=== PATIENT | female | born 1940 | race Hispanic/Latino ===

== ENCOUNTER 2017-06-10 12:08 | Inpatient (IN) | payer MEDICARE ==
[2017-06-10 12:55] LABS: Bilirubin Negative (Negative); Blood, Urine Negative (Negative); Glucose, Urine (Dipstick) Negative (Negative); Ketone, Urine Negative (Negative); Nitrite Negative (Negative); Protein, Urine (Dipstick) Negative (Neg-Trace)
[2017-06-10 12:57] LABS: Bacteria/HPF 4+ HPF (None Seen); Squamous Epithelial 0-3 HPF (0-3); WBC/HPF 21-50 HPF (0-3)
[2017-06-10 13:07] LABS: RBC/HPF 0-3 HPF (0-3)
[2017-06-10 13:09] LABS: Hyaline Casts/LPF 0-3 HYALINE CAST LPF (0-3 Hyaline)
[2017-06-10 13:22] LABS: #Eosinphils 0.2 thou/uL (0.0-0.7); #Lymphocytes 1.2 thou/uL (1.20-3.40); #Monocytes 0.4 thou/uL (0.11-0.59); #Neutrophils 3.8 thou/uL (1.40-6.50); %Basophils 0.5 % (0.0-1.0); %Eosinophils 2.9 % (0.0-10.0); %Lymphocytes 21.3 % (21.0-51.0); %Monocytes 7.6 % (0.0-10.0); Hematocrit 27.9 % (36.0-47.0); Red Blood Cell (RBC) Count 2.73 mill/uL (4.20-5.40); White Blood Cell (WBC) Count 5.7 thou/uL (4.8-10.8)
--- NOTE | 2017-06-10 13:33 | RAD ---
PORTABLE CHEST: HISTORY: Dyspnea. COMPARISON: 04/05/2017 FINDINGS: Increasing opacification in the lung bases is noted, indicating moderate bilateral effusions and bib asilar atelectasis or infiltrates. There is evidence of cardiomegaly and aortic calcification again noted. Chronic dislocation of the right shoulder again noted. Degenerative changes at the left shoulder. IMPRESSION: Increasing opacification in the lung bases when compared to prior study, as described. POS: [facility]
--- NOTE | 2017-06-10 13:38 | CT ---
CT ANGIO CHEST WITH CONTRAST: HISTORY: Shortness of breath. Elevated D-dimer. TECHNIQUE: Multiple axial tomograms obtained through the chest with pulmonary angio protocol, with multiplanar reconstruction and 3D post processing. FINDINGS: This exam is severely degraded due to attenuation artifact from body habitus. The pulmonary arterie s have suboptimal opacification. No evidence of proximal pulmonary embolus identified. There are moderate bilateral pleural effusions and bibasilar atelectasis or infiltrates with dense a telectasis/consolidation in the left lung base. The thoracic aorta shows no evidence of dissection. Nonspecific mediastinal lymph nodes with a calcified left hilar lymph node. Images through the up per abdomen are unremarkable. IMPRESSION: 1. Suboptimal exam, as described above. No evidence of proximal pulmonary embolus. 2. Bilateral pleural effusions with bibasilar atelectasis and dense atelectasis/consolidation in th e left lung base. POS: [facility]
[2017-06-10 13:42] LABS: ALT (SGPT) 8 U/L (8-55); AST (SGOT) 13 U/L (5-34); Alkaline Phosphatase 90 U/L (40-150); Anion Gap 14 mmol/L (10-20); BUN (Urea Nitrogen) 19 mg/dL (9.8-20.1); Bilirubin, Total 0.2 mg/dL (0.2-1.2); CK (CPK) 20 U/L (29-168); Calc. Creatinine Clearance 0 mL/min (70-130); Carbon Dioxide 27 mmol/L (23-31); Chloride 106 mmol/L (98-107); Estimated GFR-MDRD 84; Protein, Total 5.9 g/dL (6.0-8.3)
[2017-06-10 13:46] LABS: Troponin I Less than 0.010 ng/mL (< 0.028)
[2017-06-10] MEDS ORDERED: Piperacillin/Tazobactam 4.5 GM VIAL ONE (14:34)
[2017-06-10] MEDS ORDERED: Piperacillin/Tazobactam 4.5 GM, Admixture Fee 1 EACH in Sodium Chloride 0.9% 100 ML IVPB SCH (14:45)
[2017-06-10] MEDS ORDERED: ISOVUE-370 76%-LOCM 1 ML ONE (16:00)
[2017-06-10] MEDS ORDERED: Ondansetron HCl/PF 4 MG/2 ML Vial IVP PRN (17:19)
[2017-06-10] MEDS ORDERED: Acetaminophen 325 MG TAB PO PRN (17:19)
[2017-06-10] MEDS ORDERED: Ondansetron ODT 4 MG TAB SL PRN (17:19)
[2017-06-10] MEDS ORDERED: FLU VACC TS2017-18 (>65YR) 0.5 ML SYRINGE IM ONE (18:15)
[2017-06-10] MEDS ORDERED: Insulin Regular 300 UNITS/3 ML VIAL SC PRN (19:01)
[2017-06-10] MEDS ORDERED: Dextrose 5% in Water 1,000 ML IV PRN (19:01)
[2017-06-10] MEDS: busPIRone HCl 10 MG TAB PO SCH (20:05)
[2017-06-10] MEDS: Piperacillin/Tazobactam 4.5 GM, Admixture Fee 1 EACH in Sodium Chloride 0.9% 100 ML IVPB SCH (21:18)
--- NOTE | 2017-06-10 23:44 | HP ---
DATE OF ADMISSION: 06/10/2017 CHIEF COMPLAINT: Pneumonia, left lower lobe. HISTORY OF PRESENT ILLNESS: Patient is a 76[facility] patient who had been in her usual state of health and inactivity at the [facility] when they noticed her being more short witted th an usual. They elected to send her to the emergency room where there was initially concern about pu lmonary embolism and because of elevated D-dimer. When the CT scan of the chest was performed, it s howed no pulmonary embolism, but a possible infiltrate/atelectasis to the left lower lobe and the ER doctor contacted Dr. Torres about his concern that this is a pneumonia, despite a normal white count , no fever, no cough. He thought she warranted antibiotics and further treatment. PAST MEDICAL HISTORY: Significant for extreme morbid obesity and sedentary lifestyle, hypertension, obstructive sleep apnea - noncompliant with CPAP, osteoarthritis of the knees, severe hypothyroidis m, chronic back pain, depression, anxiety, B12 deficiency, and GERD. PAST SURGICAL HISTORY: Cholecystectomy. ALLERGIES: She has no known drug allergies. MEDICATIONS: Her regular medications include levothyroxine 25 mcg daily, Actos 30 mg daily, glimepi ride 2 mg daily, Paxil 20 mg daily, Protonix 40 mg daily, hydrochlorothiazide 25 mg daily, and BuSpa r 10 mg t.i.d. FAMILY HISTORY: The patient's family history is very strong for diabetes, chronic kidney disease wi th one sister on dialysis. No family history of cancer. SOCIAL HISTORY: The patient does not smoke or drink. REVIEW OF SYSTEMS: Constitutional: She has chronic fatigue. States that she has no appetite, but remained extremely obese. IT APPLICATIONS DEVELOPER: No history of syncope, TIA, seizures, headaches. She is dizzy occa sionally. Respiratory burkett: Denies coughing dyspneaalthough, she was observed to be dyspnea by the nurses. Heart: She denies chest pain, arrhythmias, or palpitations. HEENT: Denies headaches, bl urred vision, lesions in her nose, mouth, pharynx. Abdomen: Denies abdominal pain, diarrhea, or na usea. Genitourinary: Denies painful urination or blood in urine or stool. Musculoskeletal: Denie s any pains except for chronic arthritis in her major joints. Skin: No acute rashes or lesions not ed. She has had a chronic wound care coming for her left great toe, which is showing peripheral vas cular insufficiency. Hematology/Lymph: No new areas of swelling or edema. Psychiatrically: Signi ficant for anxiety and depression, which are well controlled at this time. Denies hallucinations or delusions. PHYSICAL EXAMINATION: At the time of admission: VITAL SIGNS: Blood pressure is 133/72, pulse is 77, respirations 17, O2 saturation 97% on room air oxygen 2 liters per nasal cannula. She weighs 271 pounds 9 ounces. GENERAL: This is an extremely obese female, alert, oriented, and cooperative without any distress. HEENT: Normocephalic and atraumatic. Pupils are equal, round, and reactive to light. Extraocular muscles are intact. TMs, nares, pharynx clear. NECK: Supple, trachea midline, no mass, no bruits. CHEST: With good breath sounds bilaterally. No audible rales, wheezing, or rhonchi. HEART: Regular rate and rhythm. BREASTS EXAM: Deferred. ABDOMEN: Nontender, obese, unable to appreciate organomegaly. GENITOURINARY: Deferred. EXTREMITIES: Without clubbing, cyanosis, or edema; however, at the left great toe, there is an isch emic tip with slowly healing sore. NEUROLOGIC: Neurologically, cranial nerves are intact. Sensory exam is intact. Mental status is a t baseline and nonfocal. Unable to test gait and cerebellar function. LABORATORY DATA AND X-RAY FINDINGS: Lab work thus far shows WBC is 5.7, hemoglobin 8.5, hematocrit 27.9 with platelets at 276. Sodium 143, potassium 4.2, chloride 106, CO2 of 27, BUN 19, creatinine 0.68 with a GFR of 84, and glucose 109. CK-MB, cardiac enzymes are all negative. BNP slightly elev ated at 188. Liver functions unremarkable. Protein intake is somewhat low. Urinalysis shows large leukocyte esterase with wbc's 2150 and 4+ bacteria. ASSESSMENT: 1. Atelectasis versus left lower lobe pneumonia. 2. Urinary tract infection. 3. Peripheral vascular disease with poor healing, left great toe. 4. Extreme obesity. 5. Noninsulin-dependent diabetes. 6. Obstructive sleep apnea, noncompliant. 7. Chronic anemia due to B12 deficiency. The plan is to Hemoccult stools. IV antibiotics. We will continue DuoNeb treatments q.i.d. Serial ly, reevaluate the patient for her blood sugars and hopefully, we will be able to [facility] to the [facility] soon. We will also have wound care come and follow the left great toe.
[2017-06-11] MEDS: Piperacillin/Tazobactam 4.5 GM, Admixture Fee 1 EACH in Sodium Chloride 0.9% 100 ML IVPB SCH ×4 (02:50→21:15)
[2017-06-11] MEDS: Vancomycin HCl 1.75 GM in Sodium Chloride 0.9% 500 ML IVPB SCH ×2 (02:51→12:56)
[2017-06-11 04:16] LABS: #Basophils 0.1 thou/uL (0.0-0.2); #Eosinphils 0.2 thou/uL (0.0-0.7); #Lymphocytes 1.3 thou/uL (1.20-3.40); #Monocytes 0.6 thou/uL (0.11-0.59); #Neutrophils 4.1 thou/uL (1.40-6.50); %Basophils 0.9 % (0.0-1.0); %Eosinophils 3.1 % (0.0-10.0); %Lymphocytes 20.9 % (21.0-51.0); %Monocytes 9.6 % (0.0-10.0); Hematocrit 26.1 % (36.0-47.0); Mean Platelet Volume 6.3 fL (7.4-10.4); Red Blood Cell (RBC) Count 2.56 mill/uL (4.20-5.40); White Blood Cell (WBC) Count 6.2 thou/uL (4.8-10.8)
[2017-06-11 04:20] LABS: Hemoglobin A1c 4.6 % (4.0-6.0)
[2017-06-11 04:29] LABS: Anion Gap 11 mmol/L (10-20); BUN (Urea Nitrogen) 19 mg/dL (9.8-20.1); Calc. Creatinine Clearance 141 mL/min (70-130); Calcium 8.7 mg/dL (7.8-10.44); Carbon Dioxide 28 mmol/L (23-31); Chloride 107 mmol/L (98-107); Cholesterol 143 mg/dl (< 200 Desired); Estimated GFR-MDRD 86; LDL Cholesterol, Calculated 71 mg/dL
[2017-06-11] MEDS: Levothyroxine Sodium 25 MCG TAB PO SCH (05:38)
--- NOTE | 2017-06-11 07:59 | PRG ---
DATE OF SERVICE: 06/11/2017 SUBJECTIVE: The patient is awake. She is alert. She feels better she says. She is eating breakfa [address]. PHYSICAL EXAMINATION: GENERAL: She is awake. VITAL SIGNS: Her blood pressure 120/70, pulse 66, respirations 18, temperature 98.3. NECK: Supple. JVP cannot be assessed due to obese neck. Carotid had good upstroke with no thyrome casandra. COR: Regular rate and rhythm. CHEST: A few scattered wheezing, a few crackles. ABDOMEN: Soft, nontender with normoactive bowel sounds. No bruit or organomegaly. EXTREMITIES: No edema or cyanosis. She had palpable pedal pulses. SKIN: At the left great toe there is an ischemic tip with slowly healing sore. She had palpable pe beth pulses. NEUROLOGIC: She is awake, alert, and oriented to person, place, and time. LABORATORY DATA: White blood cell normal, H\T\H 8.0 and 26.1, platelet count is 290. ASSESSMENT: 1. Pneumonia. 2. Urinary tract infection. 3. Obesity. 4. Diabetes. 5. Anemia. 6. Sleep apnea. 7. Multiple medical problems. PLAN: The patient will continue here on IV antibiotics. We will wait for Hemoccult stool. We will also check iron studies. The patient verbalized understanding and all questions answered to her sa buster.
[2017-06-11] MEDS: Losartan 25 MG TAB PO SCH (09:44)
[2017-06-11] MEDS: Hydrochlorothiazide 25 MG TAB PO SCH (09:44)
[2017-06-11] MEDS: Pioglitazone HCl 15 MG TAB PO SCH (09:45)
[2017-06-11] MEDS: PARoxetine 20 MG TAB PO SCH (09:45)
[2017-06-11] MEDS: Glimepiride 2 MG TAB PO SCH (09:45)
[2017-06-11] MEDS: busPIRone HCl 10 MG TAB PO SCH ×3 (09:45→21:15)
[2017-06-11] MEDS: Acetaminophen 325 MG TAB PO PRN (10:48)
--- NOTE | 2017-06-11 12:27 | PQF ---
DATE: 06-11-17 ATTN: JEAN CLAUDE TUCKER / DR. LESLIE COX Please exercise your independent, professional judgment in responding to the clarification form. Clinical indicators are provided on the bottom of this form for your review Please check appropriate box(s): [ ] Sepsis due to UTI due to Indwelling Kumar Catheter [ ] Sepsis due to UTI not due to Indwelling Kumar Catheter [ ] Other diagnosis [ x ] Unable to determine In addition, please specify: Present on Admission (POA): [ x ] Yes [ ] No [ ] Unable to determine For continuity of documentation, please document condition throughout progress notes and discharge summary. Thank You. CLINICAL INDICATORS - SIGNS / SYMPTOMS / LABS URINE: 06-10-17: UR LEUKOCYTE ESTERASE LARGE H URINE WBC 21-50 H URINE BACTERIA +4 H ER DOCUMENTATION: KUMAR CATHETER WAS PLACED ON 04-27. MT NURSE CONFIRMED THAT KUMAR CATHETER HAS NOT BEEN CHANGED SINCE THIS DATE. Documentation: H&P: UTI PN JEAN CLAUDE TUCKER 06-14-17: SEPSIS FROM UTI RISK FACTORS: ER DOCUMENTATION: KUMAR CATHETER WAS PLACED ON 04-27. SKILLED NURSING NURSE CONFIRMED THAT KUMAR CATHETER HAS NOT BEEN CHANGED SINCE THIS DATE. TREATMENT: ER DOCUMENTATION: NEW KUMAR PLACED IN THE ED. (06-10-17: ZOSYN), VANCOMYCIN ( ER ) This form is maintained as a part of the permanent medical record) 2014 [employer], [employer] All Rights Reserved [email or web address] [email or web address] Office: [phone] HOSPITALAmber
[2017-06-12] MEDS: Piperacillin/Tazobactam 4.5 GM, Admixture Fee 1 EACH in Sodium Chloride 0.9% 100 ML IVPB SCH ×4 (03:01→19:58)
[2017-06-12] MEDS: Vancomycin HCl 1.75 GM in Sodium Chloride 0.9% 500 ML IVPB SCH ×2 (03:01→16:06)
[2017-06-12] MEDS: Levothyroxine Sodium 25 MCG TAB PO SCH (05:17)
--- NOTE | 2017-06-12 08:04 | PRG ---
DATE OF SERVICE: 06/12/2017 SUBJECTIVE: The patient had a good night. She denies any complaints except her right upper arm is swollen. I do not remember it being swollen at [facility]. PHYSICAL EXAMINATION: VITAL SIGNS: Upon evaluation, her blood pressure is normal at 112/50, pulse 70, respiration rate 18 . She is afebrile. NECK: Supple. JVP cannot be assessed due to obese neck. Carotid had good upstroke with no thyrome casandra. COR: Regular rate and rhythm. CHEST: Symmetrical. Clear to auscultation and percussion. ABDOMEN: Soft, nontender with normoactive bowel sounds. No bruit or organomegaly. EXTREMITIES: Her right upper extremity is cool, it is edematous, more so than the left. She had pa lpable pedal pulses. SKIN: There is no evidence of ulcer, lesion, or rash. NEUROLOGIC: She is awake, alert, and oriented to person, place, and time. LABORATORY DATA: There is no lab in the chart. ASSESSMENT: 1. Pneumonia. 2. Rule out deep venous thrombosis of the right upper extremity. 3. Hypertension. 4. Anemia. 5. Deconditioning. 6. Positive preliminary blood culture. PLAN: 1. We will check iron studies. 2. We will check a right upper extremity venous Doppler. 3. We will ask a Physical Therapy to see the patient in consultation. 4. We will check a CBC and CMP in the morning. This is SHAYNE Sherwood-Raul dictating for Dr. Reji Torres.
[2017-06-12] MEDS: Glimepiride 2 MG TAB PO SCH (08:39)
[2017-06-12] MEDS: busPIRone HCl 10 MG TAB PO SCH ×3 (08:40→19:58)
[2017-06-12] MEDS: Losartan 25 MG TAB PO SCH (08:40)
[2017-06-12] MEDS: Hydrochlorothiazide 25 MG TAB PO SCH (08:40)
[2017-06-12] MEDS: Pioglitazone HCl 15 MG TAB PO SCH (08:41)
[2017-06-12] MEDS: PARoxetine 20 MG TAB PO SCH (08:41)
[2017-06-12 09:45] LABS: Iron 31 ug/dL (50-170)
[2017-06-12] MEDS: Dextrose 50% Abboject 50 ML SYRINGE IVP PRN (10:32)
[2017-06-12 14:52] LABS: Vancomycin, Trough 24.7 ug/mL
--- NOTE | 2017-06-12 16:17 | ULT ---
RIGHT UPPER EXTREMITY VENOUS DUPLEX ULTRASOUND INCLUDING COLOR AND SPECTRAL DOPPLER IMAGIN06/12/17 HISTORY: 76-year-old female with right upper extremity swelling and edema. The visualized right internal jugular, subclavian, axillary, brachial, and radial and ulnar veins as well as the right basilic and cephalic veins demonstrate phasic flow with normal compressibility an d normal augmentation. No intraluminal thrombus. IMPRESSION: No evidence for deep venous thrombosis. POS: [facility]
[2017-06-12] MEDS: Dextrose 5% in Water 1,000 ML IV SCH (19:58)
[2017-06-13] MEDS: Dextrose 50% Abboject 50 ML SYRINGE IVP PRN ×5 (00:05→20:08)
[2017-06-13] MEDS ORDERED: Vancomycin HCl 1.25 GM in Sodium Chloride 0.9% 250 ML 250 ML IVPB SCH (04:00)
[2017-06-13 04:20] LABS: #Eosinphils 0.2 thou/uL (0.0-0.7); #Lymphocytes 0.5 thou/uL (1.20-3.40); #Monocytes 0.4 thou/uL (0.11-0.59); #Neutrophils 6.5 thou/uL (1.40-6.50); %Eosinophils 2.2 % (0.0-10.0); %Lymphocytes 6.1 % (21.0-51.0); %Monocytes 5.3 % (0.0-10.0); Hematocrit 27.6 % (36.0-47.0); Mean Platelet Volume 6.7 fL (7.4-10.4); Red Blood Cell (RBC) Count 2.65 mill/uL (4.20-5.40); White Blood Cell (WBC) Count 7.6 thou/uL (4.8-10.8)
[2017-06-13 04:50] LABS: ALT (SGPT) 9 U/L (8-55); AST (SGOT) 20 U/L (5-34); Alkaline Phosphatase 78 U/L (40-150); Anion Gap 14 mmol/L (10-20); BUN (Urea Nitrogen) 25 mg/dL (9.8-20.1); Bilirubin, Total 0.2 mg/dL (0.2-1.2); Calc. Creatinine Clearance 133 mL/min (70-130); Calcium 8.7 mg/dL (7.8-10.44); Carbon Dioxide 23 mmol/L (23-31); Chloride 106 mmol/L (98-107); Estimated GFR-MDRD 80; Globulin 3.2 g/dL (2.4-3.5)
[2017-06-13] MEDS: Levothyroxine Sodium 25 MCG TAB PO SCH (04:54)
[2017-06-13] MEDS: Piperacillin/Tazobactam 4.5 GM, Admixture Fee 1 EACH in Sodium Chloride 0.9% 100 ML IVPB SCH ×2 (04:54→13:29)
--- NOTE | 2017-06-13 08:12 | RAD ---
CHEST ONE VIEW: HISTORY: Dyspnea. Followup. COMPARISON: 06/10/2017 FINDINGS: The cardiac silhouette remains magnified, enlarged, and partially obscured by patchy bibasilar infil trates. The pulmonary vasculature remains engorged. The mediastinum is midline with aortic calcifi cation. IMPRESSION: 1. Congestive heart failure. 2. Stable radiographic appearance of the chest. POS: [facility]
[2017-06-13] MEDS: busPIRone HCl 10 MG TAB PO SCH ×3 (08:26→20:09)
[2017-06-13] MEDS: Losartan 25 MG TAB PO SCH (08:26)
[2017-06-13] MEDS: PARoxetine 20 MG TAB PO SCH (08:27)
[2017-06-13] MEDS: Hydrochlorothiazide 25 MG TAB PO SCH (08:27)
[2017-06-13] MEDS ORDERED: Ciprofloxacin 500 MG TAB PO SCH (08:30)
[2017-06-13] MEDS: Nitrofurantoin Monohyd/M-Cryst 100 MG CAP PO SCH ×2 (10:31→21:28)
--- NOTE | 2017-06-13 11:36 | PRG ---
ANU Sherwood, dictating for Reji Torres M.D. DATE OF SERVICE: 06/13/2017 SUBJECTIVE: The patient had a good night except her blood sugar remained low all day, yesterday and all tonight. She does eat 3 meals and she did have snacks all day. Apparently, she was lethargic when her blood sugar got very low in the middle of the night. PHYSICAL EXAMINATION: GENERAL: Upon evaluation, she is awake, alert, and oriented. She has had breakfast. VITAL SIGNS: Her blood pressure is good 110/60, her pulse is 94, temperature 97.4. NECK: Supple. JVP cannot be assessed due to obese neck. Carotid had good upstroke with no thyrome casandra. COR: Regular rate and rhythm. CHEST: Symmetrical. Clear to auscultation and percussion. ABDOMEN: Soft, nontender with normoactive bowel sounds. There was no bruit or organomegaly. EXTREMITIES: Her right arm is still swollen; however, her Doppler was negative. She had palpable p edal pulses. SKIN: There is no evidence of lesion or rash. LABORATORY DATA: Her urine culture came back to show three organisms. ASSESSMENT: 1. Urinary tract infection. 2. Hypoglycemia. 3. Hypertension. 4. Anemia. 5. Obesity. 6. Multiple medical problems. PLAN: 1. We will change her IV fluids to D10 at 125 mL an hour. 2. We will keep checking blood sugars every 3 hours. 3. We will make sure Austin was changed out. I believe it was changed out yesterday. 4. We will follow up with lab in the morning. 5. We will begin Cipro and Macrobid, but continue vancomycin until we know the blood culture final results. The patient verbalized understanding and all questions answered to her satisfaction.
[2017-06-13] MEDS ORDERED: Furosemide 40 MG/4 ML VIAL SLOW IVP SCH (13:00)
[2017-06-13 13:36] LABS: Oxyhemoglobin 95.4 % (94.0-97.0); Sodium 137 mmol/L (135-148)
[2017-06-13 13:37] LABS: Mode 2LNC; Vent YES
[2017-06-13] MEDS: Dextrose 10% in Water 1,000 ML IV SCH ×3 (15:15→22:33)
[2017-06-13] MEDS: Dextrose 5% in Water 1,000 ML IV SCH (16:24)
[2017-06-13] MEDS: MEROPENEM 1 GM/50 ML 1 GM in Premix Bag 1 BAG IVPB SCH ×2 (17:58→21:29)
--- NOTE | 2017-06-13 18:13 | RAD ---
CHEST ONE VIEW 06/13/17 HISTORY: Central line placement. COMPARISON: Chest one view same day. FINDINGS: Central venous catheter is present with tip at the superior SVC. No pneumothorax. Heart size is enla rged. Bilateral large effusions as well as extensive pulmonary edema. IMPRESSION: No complication status post central line placement. POS: [facility]
[2017-06-13] MEDS: Furosemide 40 MG TAB PO SCH (20:08)
[2017-06-13] MEDS: Ciprofloxacin 500 MG TAB PO SCH (20:09)
[2017-06-13] MEDS: Potassium Chloride 10 MEQ TAB PO SCH (20:09)
[2017-06-13] MEDS: Acetaminophen 325 MG TAB PO PRN (22:15)
--- NOTE | 2017-06-13 22:39 | OP ---
DATE OF PROCEDURE: 06/13/2017 PREOPERATIVE DIAGNOSES: 1. Pneumonia/urinary tract infection. 2. Need for intravenous access. POSTOPERATIVE DIAGNOSES: 1. Pneumonia/urinary tract infection. 2. Need for intravenous access. PROCEDURE PERFORMED: Placement of left subclavian triple-lumen central venous catheter. INDICATIONS FOR PROCEDURE: A 76-year-old morbidly obese woman who is admitted with a diagnosis of p neumonia and UTI. Multiple attempts to secure a dependable peripheral IV access have been unsuccess ful. I was asked to place a central venous access to facilitate therapeutics. DESCRIPTION OF PROCEDURE: Informed consent obtained from the patient who was placed in supine posit ion. The left chest wall is sterilely prepped and draped in the usual fashion. The skin below the left clavicle was anesthetized with 1% lidocaine. The left subclavian vein was then cannulated with an 18-gauge introducer needle returning dark venous blood. The guidewire was passed through this n eedle and advanced into the left subclavian vein without resistance. The needle was withdrawn over the guidewire. A stab incision is made adjacent to the guidewire using an 11 scalpel. A dilator wa s passed over the guidewire dilating subcutaneous tissues. The dilator was removed and a triple-lum en central venous catheter was then advanced over the guidewire and placed in the left subclavian ve in without resistance and stopping at the 18 cm triston. The guidewire was removed. Dark venous blood was aspirated from all 3 ports which were individually flushed with saline. The catheter was secur ed to the anterior chest wall using 3-0 silk suture at 2 points. Biopatch and sterile dressings wer e applied. The patient tolerated this procedure without any apparent complications. The portable c hest x-ray was obtained confirming proper placement of the line. No pneumothorax present. She terrie ins hemodynamically stable following completion of the procedure.
[2017-06-14] MEDS: Dextrose 50% Abboject 50 ML SYRINGE IVP PRN ×6 (00:06→14:59)
[2017-06-14 04:39] LABS: #Eosinphils 0.3 thou/uL (0.0-0.7); #Monocytes 0.8 thou/uL (0.11-0.59); #Neutrophils 5.6 thou/uL (1.40-6.50); %Basophils 0.2 % (0.0-1.0); %Eosinophils 4.3 % (0.0-10.0); %Lymphocytes 12.9 % (21.0-51.0); %Monocytes 10.2 % (0.0-10.0); Hematocrit 26.9 % (36.0-47.0); Mean Platelet Volume 6.3 fL (7.4-10.4); Red Blood Cell (RBC) Count 2.61 mill/uL (4.20-5.40); White Blood Cell (WBC) Count 7.7 thou/uL (4.8-10.8)
[2017-06-14 04:54] LABS: ALT (SGPT) 11 U/L (8-55); AST (SGOT) 14 U/L (5-34); Alkaline Phosphatase 71 U/L (40-150); Anion Gap 11 mmol/L (10-20); BUN (Urea Nitrogen) 28 mg/dL (9.8-20.1); Bilirubin, Total 0.2 mg/dL (0.2-1.2); Calc. Creatinine Clearance 109 mL/min (70-130); Calcium 8.5 mg/dL (7.8-10.44); Carbon Dioxide 26 mmol/L (23-31); Chloride 101 mmol/L (98-107); Estimated GFR-MDRD 63; Globulin 2.7 g/dL (2.4-3.5); Protein, Total 5.7 g/dL (6.0-8.3)
[2017-06-14] MEDS ORDERED: Furosemide 40 MG/4 ML VIAL SLOW IVP SCH (05:30)
[2017-06-14] MEDS: Ciprofloxacin 500 MG TAB PO SCH (05:52)
[2017-06-14] MEDS: Levothyroxine Sodium 25 MCG TAB PO SCH (05:52)
[2017-06-14] MEDS: MEROPENEM 1 GM/50 ML 1 GM in Premix Bag 1 BAG IVPB SCH ×3 (05:52→21:14)
[2017-06-14] MEDS ORDERED: Hydrocortisone Sod Succ/PF 100 mg/2 ml Vial IVP STA (09:04)
[2017-06-14] MEDS: busPIRone HCl 10 MG TAB PO SCH ×3 (09:10→21:14)
[2017-06-14] MEDS: Furosemide 40 MG TAB PO SCH ×2 (09:11→21:14)
[2017-06-14] MEDS: Hydrochlorothiazide 25 MG TAB PO SCH (09:11)
[2017-06-14] MEDS: Losartan 25 MG TAB PO SCH (09:11)
[2017-06-14] MEDS: PARoxetine 20 MG TAB PO SCH (09:13)
[2017-06-14] MEDS: Potassium Chloride 10 MEQ TAB PO SCH ×2 (09:13→21:14)
[2017-06-14] MEDS: Dextrose 10% in Water 1,000 ML IV SCH ×2 (09:26→15:51)
--- NOTE | 2017-06-14 09:36 | CON ---
DATE OF CONSULTATION: 06/14/2017 REASON FOR CONSULTATION: IMCU stay. HISTORY OF PRESENT ILLNESS: This is a 76-year-old female who [facility] [place] who was admitt ed several days ago for what appeared to be pneumonia. She has had persistently low blood sugars si nce the time of admission. I do not believe the source of that is known. I have reviewed her medic ation record and she has not received any oral hypoglycemics since the day of admission. She is cur rently needing a D10 drip to keep her glucose at a reasonable level. On top of that, she has requir ed several ampules of intravenous glucose to keep her blood sugar up. PAST MEDICAL HISTORY: 1. Diabetes mellitus type 2 for the last 40 years. 2. Morbid obesity. 3. Nonambulatory state. 4. Hypertension. 5. Osteoarthritis. 6. Ulcer on left great toe. 7. Chronic pain. 8. Hypothyroidism. 9. B12 deficiencies. 10. Gastroesophageal reflux. PAST SURGICAL HISTORY: Cholecystectomy. ALLERGIES: None. MEDICATIONS PRIOR TO ADMISSION: Levothyroxine, Actos, glimepiride, Paxil, Protonix, hydrochlorothia zide, buspirone. CURRENT INPATIENT MEDICATIONS: She is on a D10 drip, ciprofloxacin, Lasix, hydrochlorothiazide, Syn throid, Cozaar, meropenem, Macrobid, Protonix, Paxil. SOCIAL HISTORY: She does not drink alcohol. She does not smoke. She [facility] [place] a jail. REVIEW OF SYSTEMS: She denies any type of pain at the current time. She has no abdominal issues. She has had no fever, chills, nausea, vomiting, chest pain, hematemesis, melena, hematochezia, hemat uria, or dysuria. PHYSICAL EXAMINATION: VITAL SIGNS: Temperature 97.3, pulse 73, respirations 20, O2 sat 96% on 3 liters, blood pressure 11 6/35. GENERAL: She is awake and alert and is in no distress. She answers questions completely without li mitation. HEENT: Unremarkable. NECK: Without adenopathy or JVD. LUNGS: Clear to auscultation. No wheezing, rhonchi or rales. CARDIOVASCULAR: S1, S2 regular, without murmur. ABDOMEN: Soft, obese, nontender, nondistended. EXTREMITIES: No clubbing. She has 1+ edema. LABORATORY DATA AND IMAGING: Sodium 134, potassium 4, chloride 101, CO2 26, BUN 28, creatinine 0.8, glucose 59, albumin 3.0. White blood cell count 7.7, hemoglobin 8.2, hematocrit 26.9, platelet cou nt 329. Echocardiogram demonstrated an EF of 50%-55% with moderate mitral regurgitation. X-RAY FINDINGS: Chest x-ray from 06/10/2017 demonstrated bilateral pulmonary edema/infiltrate. ASSESSMENT: 1. Severe hypoglycemia - Etiology not known at this time. It does not appear that she is taking an y oral hypoglycemics, although previous oral hypoglycemics could be hanging in room. 2. Bilateral pulmonary infiltrates - currently on antibiotics. RECOMMENDATIONS: 1. Continue D10 drip. 2. Check C-peptide and insulin level. 3. One dose Solu-Cortef after checking cortisol level. 4. Continue antibiotics. 5. Judicious use of diuretics.
[2017-06-14] MEDS: Nitrofurantoin Monohyd/M-Cryst 100 MG CAP PO SCH ×2 (09:58→21:14)
--- NOTE | 2017-06-14 11:13 | ULT ---
LEFT LOWER EXTREMITY VENOUS DUPLEX SONOGRAM: Date: 06/14/17 HISTORY: Left leg pain and edema. FINDINGS: The left common femoral vein and greater saphenous junction were evaluated along with the femoral, d eep femoral, popliteal, and posterior tibial veins. There is good color and spectral Doppler flow, c ompression, and augmentation. IMPRESSION: No sonographic evidence of deep venous thrombosis within the left lower extremity. POS: [facility]
--- NOTE | 2017-06-14 13:04 | PRG ---
DATE OF SERVICE: 06/14/2017 SUBJECTIVE: The patient is awake. She is alert. She had her BiPAP on last night. She states she is breathing much better. She is diuresing well. Unfortunately, her blood sugar remains low. Dr. Gutierrez did come see the patient in consultation, because she was in [facility]. Upon evaluation, denies any complaints. PHYSICAL EXAMINATION: GENERAL: She is awake, alert, and oriented to person, place and time. VITAL SIGNS: Her blood pressure is 116/40, pulse 76, respiration 18, she is afebrile. NECK: Supple. JVD cannot be assessed due to obese neck. Carotid had good upstroke with no thyrome casandra. COR: Regular rate and rhythm. CHEST: Symmetrical. Clear to auscultation and percussion, upper lobes. ABDOMEN: Soft, nontender with normoactive bowel sounds. No bruit or organomegaly. EXTREMITIES: U pper extremities are swollen. Her left lower extremities are swollen with a pitting edema. I do no t have the official venous Doppler report that has been read in the chart yet. ASSESSMENT: 1. Sepsis from urinary tract infection. 2. Hypoglycemia. 3. Obesity. 4. Hypertension. 5. Sleep apnea. 6. Multiple medical problems. PLAN: 1. We will continue all antibiotics for now. Dr. Dominguez has been consulted. However, I do not see a note in the chart for him yet. He will hopefully help us guide the antibiotic use. Also, we will keep checking the blood sugars and keep on D10 for now. 2. I appreciate all help from Dr. Gutierrez. The case was discussed with Dr. Reji Torres. This is SHAYNE Sherwood-Raul dictating for Dr. Reji Torres.
[2017-06-14] MEDS ORDERED: Furosemide 40 MG/4 ML VIAL SLOW IVP PRN (15:23)
--- NOTE | 2017-06-14 21:02 | CON ---
DATE OF CONSULTATION: 06/14/2017 REASON FOR CONSULTATION: Pneumonia, urinary tract findings. HISTORY OF PRESENT ILLNESS: A 76-year-old whom I had seen many years ago when she presented with lower extremity inflammatory changes. She has a history of obesity, likely hypoventilation syndrome with sleep apnea, severe osteoarthritis , and hypothyroidism. At the half-way, they did a chest x-ray apparently and noticed that she had some concerns for possible pneumonia. CT angio did not show any evidence of pulmonary embolism, but there were bilateral pleural effusions and concern with pneumonia in both bases. She has been started on broad spectrum coverage, some urinary tract findings are of concern and we were asked to evaluate the patient. Since admission, she has displayed quite significant hypoglycemia. Apparently, she was given oral hypoglycemic agents. No insulin workup has been submitted, but is pending at this time. Ms. Palacios is awake and alert, oriented, eating lunch. She denies headaches, no sore throat, odynophagia, dysphagia, still with moderate dyspnea at rest. No abdominal pain. The patient has an indwelling Austin catheter for the past few months, the reason for placement is because she cannot get up to urinate by herself. She is not ambulatory, bedridden from her obesity and osteoarthritis and deconditioning. PAST MEDICAL HISTORY: Obesity, likely obstructive sleep apnea and hypoventilation syndrome, osteoarthritis, hypothyroidism, depression, B12 deficiency, GERD, prior complications related venous insufficiency and peripheral vascular disease with ulcerations in the lower extremities which have required extensive wound management, episodes of cellulitis treated in the past and has indwelling Austin catheter for the past few months. The indication is not very clear other than to keep her dry in the half-way. PAST SURGICAL HISTORY: Cholecystectomy. ALLERGIES: None. CURRENT MEDICATIONS: Include Tylenol, DuoNeb, BuSpar, Cipro, dextrose, meropenem. FAMILY HISTORY: Diabetes, renal insufficiency. SOCIAL HISTORY: Never smoker. PHYSICAL EXAMINATION: VITAL SIGNS: Normal temperature since admission and O2 sat 100%. SKIN: Showed some erythema in the presacral region and she has some shallow ulceration in the lateral aspect of the lower extremities and evidence of stasis dermatitis. She has a Austin catheter in place. Lymphedema in the lower abdominal fold area. The patient has a left subclavian central line placed during this admission. No lymphadenopathy. HEENT: Ocular movements are conjugate, some facial flushing. No conjunctival abnormalities. Sclerae white. Pupils are 2 mm and reactive. Oral cavity with upper and lower [place] teeth with some decay . Moist mucosa with shallow irregular ulcerations at the tip of her tongue. NECK: Supple, no jugular venous distention. LUNGS: With symmetric air entry, diminished breath sounds at bases. HEART: Markedly diminished heart sounds. ABDOMEN: Prominent abdominal panniculus in the abdominal fold area with lymphedema. EXTREMITIES: Osteoarthritis, she is able to wiggle her toes but cannot lift the knees from the surface of the bed. NEUROLOGIC: She is awake, oriented, follows commands. Recollection is fairly decent. LABORATORY DATA: White cell count of 4.7, hemoglobin 8.2, platelets 329. The creatinine 0.87, sodium 134. Liver profile normal. Albumin 3.0. Liver profile normal already. Urinalysis with 21-50 wbc's. Urine culture with pseudomonas aeruginosa E. coli and enterococcus species. Blood culture with coagulase negative Staph, likely contaminant. Last echocardiogram from June with a normal EF, normal left atrium, impaired relaxation, moderate MR. Brain natriuretic peptide was elevated, but not that much just 136. ASSESSMENT: Morbid obesity, hypoventilation syndrome, sleep apnea, chronic indwelling Austin catheterization and admission with respiratory symptoms and some abnormalities on x-ray and CT scan concerning for pneumonia. The patient has an element of diastolic dysfunction as well which may be contributing to symptoms plus the restrictive disease associated with the morbid obesity and hypoventilation syndrome. The findings in the urine not necessarily related to the symptoms that led to admission. The findings in the CT scanner concerning for either pneumonia or atelectasis associated with the bilateral pleural effusions. The patient had some neutrophilia on admission and I believe that empiric antimicrobial treatment is justifiable. The duration of therapy should be a short and I would go ahead and discontinue ciprofloxacin since there is overlap with meropenem. Would be important to attempt removal of the Austin catheter eventually and replace it with diapers to decrease the risk of future complications related to chronic Austin catheterization. Procalcitonin might help in terms of the discrimination, but now it has been a few days since admission, so this going to have less discriminating power if ordered now. MTDD
[2017-06-15] MEDS: Dextrose 10% in Water 1,000 ML IV SCH ×2 (01:02→07:42)
[2017-06-15 05:36] LABS: #Eosinphils 0.1 thou/uL (0.0-0.7); #Monocytes 0.5 thou/uL (0.11-0.59); %Basophils 0.3 % (0.0-1.0); %Eosinophils 1.6 % (0.0-10.0); %Lymphocytes 14.9 % (21.0-51.0); %Monocytes 7.6 % (0.0-10.0); Hematocrit 24.2 % (36.0-47.0); Mean Platelet Volume 6.2 fL (7.4-10.4); Red Blood Cell (RBC) Count 2.37 mill/uL (4.20-5.40); White Blood Cell (WBC) Count 6.6 thou/uL (4.8-10.8)
[2017-06-15 05:43] LABS: ALT (SGPT) 10 U/L (8-55); AST (SGOT) 15 U/L (5-34); Alkaline Phosphatase 69 U/L (40-150); Anion Gap 12 mmol/L (10-20); BUN (Urea Nitrogen) 30 mg/dL (9.8-20.1); Bilirubin, Total 0.2 mg/dL (0.2-1.2); Calc. Creatinine Clearance 108 mL/min (70-130); Calcium 8.2 mg/dL (7.8-10.44); Carbon Dioxide 25 mmol/L (23-31); Chloride 98 mmol/L (98-107); Estimated GFR-MDRD 57; Globulin 2.6 g/dL (2.4-3.5); Protein, Total 5.4 g/dL (6.0-8.3)
[2017-06-15] MEDS: Levothyroxine Sodium 25 MCG TAB PO SCH (06:26)
[2017-06-15] MEDS: MEROPENEM 1 GM/50 ML 1 GM in Premix Bag 1 BAG IVPB SCH ×3 (06:27→21:35)
[2017-06-15] MEDS: Potassium Chloride 10 MEQ TAB PO SCH ×2 (07:47→21:09)
[2017-06-15] MEDS: Losartan 25 MG TAB PO SCH (07:47)
[2017-06-15] MEDS: Nitrofurantoin Monohyd/M-Cryst 100 MG CAP PO SCH ×2 (07:47→21:08)
[2017-06-15] MEDS: busPIRone HCl 10 MG TAB PO SCH ×3 (07:47→21:08)
[2017-06-15] MEDS: Hydrochlorothiazide 25 MG TAB PO SCH (07:47)
[2017-06-15] MEDS: PARoxetine 20 MG TAB PO SCH (07:48)
[2017-06-15] MEDS: Furosemide 40 MG TAB PO SCH ×2 (07:48→21:09)
[2017-06-15] MEDS: Dextrose 50% Abboject 50 ML SYRINGE IVP PRN (08:08)
--- NOTE | 2017-06-15 09:09 | PRG ---
DATE OF SERVICE: 06/15/2017 She is a 76-year-old obese female who was admitted to the hospital with shortness of breath. PHYSICAL EXAMINATION: VITAL SIGNS: Blood pressure 118/38, sats are 90% on 2 liters, respirations 24, temperature 97. I's \T\ O's have been 1121 in, 190 out. GENERAL: This morning she says she is less short of breath. CHEST: Chest reveals decreased breath sounds, no wheezing. CARDIAC: Normal S1, S2, no gallops. ABDOMEN: Massive. BUN and creatinine are normal. Sodium 130. White count 6000, H\T\H 7 and 24, platelet count 296, g lucose was low. IMPRESSION: 1. Persistent low blood sugar, probably secondary to oral hypoglycemic medication. 2. Morbid obesity. 3. Diastolic dysfunction. 4. Sleep apnea. 5. Hyponatremia. 6. Urinary tract infection. PLAN: She was started on meropenem by primary care physician. She is on multiple antibiotics. I would try and deescalate some of the antibiotics. Continue suppo rtive care. Continue nocturnal ventilation. Prognosis remains guarded. We will follow while in the hospital.
--- NOTE | 2017-06-15 09:25 | RAD ---
AP VIEW OF THE CHEST: INDICATION: History of CHF. COMPARISON: Prior exam dated 06/13/17. FINDINGS: Cardiomegaly, pulmonary vascular congestion, edema, and bilateral pleural effusions are largely stabl e. No pneumothorax is evident. IMPRESSION: Stable exam. POS: EDIN
--- NOTE | 2017-06-15 09:57 | PQF ---
DATE: 06-15-17 ATTN: DR. SALMA COX Please exercise your independent, professional judgment in responding to the clarification form. Clinical indicators are provided on the bottom of this form for your review Please check appropriate box(s): ____x___ I (concur) with the Wound Care findings as stated below. ____x___ I (concur) with the Nurses Assessment findings as stated below. [ ] Pressure Ulcer: (Stage I: Erythema; Stage II: Partial thickness; Stage III : Full thickness; Stage IV: Necrosis to muscle/bone) [ ] Location: POA: [ ] Yes [ ] No[ ] Unable to determine Stage (I to IV): (Left Right Bilateral N/A ) [ ] Location: POA: [ ] Yes [ ] No[ ] Unable to determine Stage (I to IV): (Left Right Bilateral N/A ) [ ] Location: POA: [ ] Yes [ ] No[ ] Unable to determine Stage (I to IV): (Left Right Bilateral N/A ) [ ] Gangrene present [ ] Yes [ ] ischemic gangrene [ ] gas gangrene [ ] No [ ] Deep tissue injury [ ] Other diagnosis [ ] Unable to determine In addition, please specify: Present on Admission (POA): [ x ] Yes [ ] No [ ] Unable to determine For continuity of documentation, please document condition throughout progress notes and discharge summary. Thank You. CLINICAL INDICATORS - SIGNS / SYMPTOMS / LABS WCT: PRESSURE ULCER STAGE 3 TO RIGHT POSTERIOR THIGH WCT: PRESSURE ULCER STAGE 3 TO RIGHT INNER THIGH WCT: PRESSURE ULCER STAGE 3 TO LEFT BUTTOCK NURSE ASSESSMENT: PRESSURE ULCER STAGE 3 TO LEFT BUTTOCK RISK FACTORS: WCT CONSULT: MORBID OBESITY, SEDENTARY LIFESTYLE, OBSTRUCTIVE SLEEP APNEA NON COMPLAINT WITH CPAP, HYPOTHYROIDISM, VITAMIN B12 DEFICIENCY, OSTEOARTHRITIS AND DECONDITIONING DR. BOLAND CONSULT 06-14-17: SHE IS NOT AMBULATORY , BEDRIDDEN FROM HER OBESITY AND OSTEOARTHRITIS AND DECONDITIONING. TREATMENTS: WCT: WASHED WITH NS AND GAUZE AND AG+ HYDROFIBER PLACE IN WOUND BED, COVERED WITH OVAL FOAM. (This form is maintained as a part of the permanent medical record) 2014 [employer] All Rights Reserved DANIEL [email or web address] Office: [phone] BURT
[2017-06-15] MEDS ORDERED: ADMIXTURE FEE IV SCH ×3 (10:45)
[2017-06-15] MEDS ORDERED: STERILE WATER IV SCH ×3 (10:45)
[2017-06-15] MEDS ORDERED: WATER IV SCH ×3 (10:45)
[2017-06-15] MEDS ORDERED: DEXTROSE IV SCH ×3 (10:45)
--- NOTE | 2017-06-15 11:23 | CT ---
CT ABDOMEN AND PELVIS WITH ORAL AND IV CONTRAST: Date: 06/15/17 HISTORY: Insulinoma FINDINGS: There are bilateral pleural effusions with adjacent bibasilar atelectatic changes/consolidation. No f ree air, free fluid, or lymphadenopathy seen in the abdomen or pelvis. The liver, spleen, pancreas, a drenal glands, and kidneys are normal. Since the imaging has not been performed in the arterial phase of contrast administration, a small, hyperenhancing pancreatic mass could be missed on the study. Th e patient is status post cholecystectomy. The small bowel loops are not abnormally dilated. A normal appearing appendix is present. There is fecal material in the colon and rectum. There are vascular ca lcifications without evidence of aneurysmal dilatation of the abdominal aorta. Degenerative changes a re present in the spine. There is edema in the subcutaneous fat. IMPRESSION: 1. Bilateral pleural effusions and adjacent infiltrates/atelectatic changes. 2. Constipation. 3. Spinal spondylosis. 4. No definite evidence of pancreatic mass. POS: EDIN
[2017-06-15] MEDS: Dexamethasone 1 MG TAB PO SCH (22:46)
[2017-06-16 04:49] LABS: #Eosinphils 0.3 thou/uL (0.0-0.7); #Lymphocytes 0.8 thou/uL (1.20-3.40); #Monocytes 0.6 thou/uL (0.11-0.59); #Neutrophils 4.9 thou/uL (1.40-6.50); %Basophils 0.4 % (0.0-1.0); %Eosinophils 3.8 % (0.0-10.0); %Lymphocytes 12.1 % (21.0-51.0); %Monocytes 9.4 % (0.0-10.0); Hematocrit 24.2 % (36.0-47.0); Mean Platelet Volume 5.7 fL (7.4-10.4); White Blood Cell (WBC) Count 6.5 thou/uL (4.8-10.8)
[2017-06-16 05:06] LABS: Anion Gap 9 mmol/L (10-20); BUN (Urea Nitrogen) 37 mg/dL (9.8-20.1); Calc. Creatinine Clearance 104 mL/min (70-130); Calcium 8.8 mg/dL (7.8-10.44); Carbon Dioxide 28 mmol/L (23-31); Chloride 93 mmol/L (98-107); Estimated GFR-MDRD 55
[2017-06-16] MEDS: MEROPENEM 1 GM/50 ML 1 GM in Premix Bag 1 BAG IVPB SCH ×3 (06:05→22:02)
[2017-06-16] MEDS: Levothyroxine Sodium 25 MCG TAB PO SCH (06:06)
--- NOTE | 2017-06-16 08:06 | PRG ---
DATE OF SERVICE: 06/16/2017 SUBJECTIVE: The patient had a good night. Unfortunately, her BiPAP was not placed on her. Her blo od sugars have been slightly better as high as 111 during the night. Her CT of the abdomen was nega tive for pancreatic mass. LABORATORY DATA: Her hemoglobin is 7.8 with a creatinine of 24.2. Her sodium is low at 125. Her c ortisol level is pending and her potassium is slightly elevated. PHYSICAL EXAMINATION: GENERAL: She is awake, alert, and oriented to person, place, and time. VITAL SIGNS: Her blood pressure is 128/64, pulse 70, respirations 18. She is afebrile. NECK: Supple. JVD cannot be assessed due to obese neck. Carotid had good upstroke with no thyrome casandra. COR: Regular rate and rhythm. CHEST: Symmetrical. Clear to auscultation and percussion. ABDOMEN: Soft, nontender, normoactive bowel sounds. No bruit or organomegaly. EXTREMITIES: Bilateral upper extremity edema and lower extremity edema. She had palpable pedal pul ses. SKIN: There is no evidence of ulcer, lesion, or rash. NEUROLOGIC: She is awake, alert, and oriented to person, place, and time. ASSESSMENT: 1. Hyponatremia. 2. Anemia. 3. Diabetes with hypoglycemia. 4. Urinary tract infection/sepsis. 5. Obesity. 6. Multiple medical problems. PLAN: 1. We will limit her fluids to 1 liter a day. 2. We will follow up with lab in the morning. 3. We will keep her on the floor for the next 24 hours or so to make sure her blood sugars remain s table. We will also hold 1 dose of potassium as well.
[2017-06-16] MEDS ORDERED: ADMIXTURE FEE IV SCH ×6 (08:33→14:43)
[2017-06-16] MEDS ORDERED: DEXTROSE IV SCH ×6 (08:33→14:43)
[2017-06-16] MEDS ORDERED: STERILE WATER IV SCH ×6 (08:33→14:43)
[2017-06-16] MEDS ORDERED: WATER IV SCH ×6 (08:33→14:43)
[2017-06-16] MEDS: Losartan 25 MG TAB PO SCH (08:37)
[2017-06-16] MEDS: Potassium Chloride 10 MEQ TAB PO SCH (08:38)
[2017-06-16] MEDS: PARoxetine 20 MG TAB PO SCH (08:38)
[2017-06-16] MEDS: busPIRone HCl 10 MG TAB PO SCH ×3 (08:38→20:27)
--- NOTE | 2017-06-16 09:01 | PRG ---
DATE OF SERVICE: 06/16/2017 This morning, she is better, less shortness of breath, she is awake, responsive. PHYSICAL EXAMINATION: VITAL SIGNS: Stable. Pulse 80, blood pressure 130/80, respirations 18, I's and O's are 3282 in, 1 75 out. CHEST: Chest revealed decreased breath sounds without any wheezing. CARDIAC: Normal S1-S2. ABDOMEN: Soft, no masses. LABORATORY: BUN 37, creatinine is 0.9. BNP is normal. White count 6000, H\T\H 7 and 24, platelet 52. IMPRESSION: 1. Morbid obesity. 2. Hyperglycemia, probably secondary to prolonged glyburide effect. 3. Urosepsis. 4. Morbid obesity. 5. Azotemia. PLAN: Suggest cutting back on aggressive diuretics that she has, she is getting prerenal. I do not know why she is on the Decadron. Maybe consider decreasing the Decadron and try to decrease the D20 to 30 mL an hour. Hopefully, we can discharge tomorrow if the blood sugar remains adequate. Aggressive PT, nocturnal BiPAP. We will follow while she is in the IMCU.
[2017-06-16 13:43] VITALS: BMI 53.2
[2017-06-16] MEDS ORDERED: Potassium Chloride 10 MEQ TAB PO SCH (21:00)
[2017-06-16] MEDS: Dexamethasone 1 MG TAB PO SCH (22:57)
[2017-06-17 04:41] LABS: #Eosinphils 0.2 thou/uL (0.0-0.7); #Lymphocytes 0.8 thou/uL (1.20-3.40); #Monocytes 0.6 thou/uL (0.11-0.59); #Neutrophils 4.9 thou/uL (1.40-6.50); %Basophils 0.3 % (0.0-1.0); %Eosinophils 3.4 % (0.0-10.0); %Lymphocytes 11.6 % (21.0-51.0); %Monocytes 9.1 % (0.0-10.0); Hematocrit 23.5 % (36.0-47.0); Red Blood Cell (RBC) Count 2.33 mill/uL (4.20-5.40); White Blood Cell (WBC) Count 6.4 thou/uL (4.8-10.8)
[2017-06-17 04:45] LABS: ALT (SGPT) 10 U/L (8-55); AST (SGOT) 15 U/L (5-34); Alkaline Phosphatase 82 U/L (40-150); Anion Gap 7 mmol/L (10-20); BUN (Urea Nitrogen) 40 mg/dL (9.8-20.1); Bilirubin, Total 0.3 mg/dL (0.2-1.2); Calc. Creatinine Clearance 120 mL/min (70-130); Calcium 8.7 mg/dL (7.8-10.44); Carbon Dioxide 31 mmol/L (23-31); Chloride 94 mmol/L (98-107); Estimated GFR-MDRD 63; Globulin 2.5 g/dL (2.4-3.5); Protein, Total 5.4 g/dL (6.0-8.3)
[2017-06-17] MEDS: MEROPENEM 1 GM/50 ML 1 GM in Premix Bag 1 BAG IVPB SCH ×3 (05:56→21:40)
[2017-06-17] MEDS: Levothyroxine Sodium 25 MCG TAB PO SCH (05:56)
[2017-06-17] MEDS ORDERED: Furosemide 40 MG TAB PO SCH (07:30)
[2017-06-17] MEDS: Losartan 25 MG TAB PO SCH (08:38)
[2017-06-17] MEDS: PARoxetine 20 MG TAB PO SCH (08:39)
[2017-06-17] MEDS: busPIRone HCl 10 MG TAB PO SCH ×3 (08:39→19:54)
[2017-06-17] MEDS ORDERED: Furosemide 20 MG TAB PO SCH (09:00)
--- NOTE | 2017-06-17 14:23 | PRG ---
DATE OF SERVICE: 06/17/2017 SUBJECTIVE: This morning she is awake, alert, responsive, is better. PHYSICAL EXAMINATION: VITAL SIGNS: Blood pressure 121/35, sats 98%, temperature 97, pulse 76, respiratory rate 16. I's a nd O's 3282 in and 1750 out. CHEST: Decreased breath sounds without any wheezing. CARDIAC: Normal S1, S2. ABDOMEN: Soft, no masses. ASSESSMENT: 1. Hypoglycemia, resolved. 2. Hyponatremia. 3. Anemia. Hemoglobin and hematocrit 7 and 23. 4. Morbid obesity. 5. Severe deconditioning. D20 was discontinued. Blood sugar now is 96. Consider switching Accu-Cheks to a.c. and at bedtime. PT, nutrition, and supportive care. We will follow her at a distance. Please call if needed.
[2017-06-18] MEDS: Levothyroxine Sodium 25 MCG TAB PO SCH (05:27)
[2017-06-18] MEDS: MEROPENEM 1 GM/50 ML 1 GM in Premix Bag 1 BAG IVPB SCH ×3 (05:27→21:34)
[2017-06-18 06:01] LABS: #Eosinphils 0.3 thou/uL (0.0-0.7); #Lymphocytes 1.6 thou/uL (1.20-3.40); #Monocytes 0.7 thou/uL (0.11-0.59); #Neutrophils 3.8 thou/uL (1.40-6.50); %Basophils 0.5 % (0.0-1.0); %Eosinophils 4.6 % (0.0-10.0); %Lymphocytes 24.5 % (21.0-51.0); %Monocytes 11.1 % (0.0-10.0); Hematocrit 22.5 % (36.0-47.0); Red Blood Cell (RBC) Count 2.24 mill/uL (4.20-5.40); White Blood Cell (WBC) Count 6.4 thou/uL (4.8-10.8)
[2017-06-18 06:27] LABS: Anion Gap 7 mmol/L (10-20); BUN (Urea Nitrogen) 44 mg/dL (9.8-20.1); Calc. Creatinine Clearance 124 mL/min (70-130); Calcium 8.7 mg/dL (7.8-10.44); Carbon Dioxide 29 mmol/L (23-31); Chloride 96 mmol/L (98-107); Estimated GFR-MDRD 65
--- NOTE | 2017-06-18 07:13 | PRG ---
DATE OF SERVICE: 06/17/2017 SUBJECTIVE: Ms. Palacios is sitting up by the bedside. She is feeling better: She is awake and alert, breathing better. No chest pain, no abdominal pain. She still has a Austin catheter in place. PHYSICAL EXAMINATION: VITAL SIGNS: Temperature max 98.4, blood pressure 120/60, pulse 75. GENERAL: More alert, more awake, breathing more comfortably. LUNGS: With symmetric air entry with faint basilar crackles. HEART: S1, S2, regular rate. ABDOMEN: Soft with prominent panniculus, but not distended or tender. EXTREMITIES: Moves all extremities equally, but she is diffusely weak. LABORATORY: White cell count 6.4, hemoglobin 7.4, platelets 265, creatinine 0.85, sodium 127, potas sium 5.3. Microbiology with coagulase negative Staph, likely a contaminant. Urine culture with 2 d ifferent organisms, possibly colonizers. ASSESSMENT: Morbid obesity, hypoventilation syndrome, sleep apnea, chronic indwelling Austin cathete rization, admitted with respiratory symptoms and some abnormalities on CT scan concerning for pneumo chanelle versus CHF or atelectases. I would probably consider discontinuing antimicrobial therapy at thi s point and would believe that the findings that led to admission are more likely to reflect cardio pulmonary decompensation not secondary to an infectious syndrome.
[2017-06-18] MEDS: Losartan 25 MG TAB PO SCH (09:59)
[2017-06-18] MEDS: PARoxetine 20 MG TAB PO SCH (10:00)
[2017-06-18] MEDS: busPIRone HCl 10 MG TAB PO SCH ×3 (10:00→21:34)
--- NOTE | 2017-06-18 12:51 | PRG ---
DATE OF SERVICE: 06/18/2017 SUBJECTIVE: Jolie Palacios, this morning, awake, alert, responsive, eating breakfast. She denies difficulty breathing, coughing, wheezing. OBJECTIVE: VITAL SIGNS: Sats are 96% on 2 liters, temperature is 98, blood pressure 111/56 , sats are adequate. LABORATORY DATA: Hemoglobin and hematocrit is 7 and 21, platelet count 265, white count 6,000. Sodium 123 probably secondary to diuretics. Echo done on shows no evidence of CHF. IMPRESSION AND PLAN: Hypoglycemia, improved. Once again may be due to glimepiride, her oral hypoglycemic medication. Electrolyte imbalance from Lasix 20mgdaily,__. I suggest discontinuing the Lasix. She has been hyponatremicand and elevated BUN,srart ambulation. Antibiotics for urinary tract infection as per Infectious Disease PT. Disposition as per primary care physician. We will follow at a distance, call if needed. BURT
[2017-06-19 04:47] VITALS: BP 119/67
[2017-06-19 05:29] LABS: #Eosinphils 0.2 thou/uL (0.0-0.7); #Lymphocytes 1.5 thou/uL (1.20-3.40); #Monocytes 0.7 thou/uL (0.11-0.59); #Neutrophils 3.4 thou/uL (1.40-6.50); %Basophils 0.3 % (0.0-1.0); %Eosinophils 3.6 % (0.0-10.0); %Lymphocytes 25.4 % (21.0-51.0); %Monocytes 11.7 % (0.0-10.0); Hematocrit 22.9 % (36.0-47.0); Mean Platelet Volume 6.1 fL (7.4-10.4); Red Blood Cell (RBC) Count 2.27 mill/uL (4.20-5.40); White Blood Cell (WBC) Count 5.8 thou/uL (4.8-10.8)
[2017-06-19 05:58] LABS: ALT (SGPT) 9 U/L (8-55); AST (SGOT) 12 U/L (5-34); Alkaline Phosphatase 83 U/L (40-150); Anion Gap 9 mmol/L (10-20); BUN (Urea Nitrogen) 47 mg/dL (9.8-20.1); Bilirubin, Total 0.3 mg/dL (0.2-1.2); Calc. Creatinine Clearance 122 mL/min (70-130); Calcium 8.7 mg/dL (7.8-10.44); Carbon Dioxide 28 mmol/L (23-31); Chloride 96 mmol/L (98-107); Estimated GFR-MDRD 64; Globulin 2.4 g/dL (2.4-3.5); Protein, Total 5.3 g/dL (6.0-8.3)
[2017-06-19] MEDS: Levothyroxine Sodium 25 MCG TAB PO SCH (06:02)
[2017-06-19] MEDS: MEROPENEM 1 GM/50 ML 1 GM in Premix Bag 1 BAG IVPB SCH (06:02)
[2017-06-19 07:36] VITALS: TEMP 97.8
[2017-06-19] MEDS: Losartan 25 MG TAB PO SCH (08:53)
[2017-06-19] MEDS: busPIRone HCl 10 MG TAB PO SCH (08:53)
[2017-06-19] MEDS: PARoxetine 20 MG TAB PO SCH (08:54)
--- NOTE | 2017-06-20 16:39 | EKG ---
Test Reason : DIAGNOSING PURPOSESS Blood Pressure : / mmHG Vent. Rate : 094 BPM Atrial Rate : 096 BPM P-R Int : 000 ms QRS Dur : 120 ms QT Int : 360 ms P-R-T Axes : 000 -33 136 degrees QTc Int : 450 ms Low voltage QRS Nonspecific T wave abnormality Partial Left bundle branch block Abnormal ECG Confirmed by TRAN SHAIKH, BRENDAN ([id number]), newspaper or periodical editor CESAR DAI ([id number]) on 06/20/2017 4:39:40 PM Referred By: Confirmed By:BRENDAN MAYFIELD MD
== END 2017-06-19 11:21 | DRG 871 ==
LOC: ERS 12:08 → T4-A 16:14 → IMCU/EMU 06-13 14:43 → T4-B 06-17 11:37
PROVIDERS: ADMIT Specialist; ATTEND Specialist
PROC: 02HV33Z Insertion of Infusion Device into Superior Vena Cava, Percutaneous Approach (ICD-10-PCS; principal; 2017-06-13)
DX: A41.9 Sepsis, unspecified organism (principal); J18.9 Pneumonia, unspecified organism; L89.323 Pressure ulcer of left buttock, stage 3; E11.649 Type 2 diabetes mellitus with hypoglycemia without coma; E11.51 Type 2 diabetes mellitus with diabetic peripheral angiopathy without gangrene; D51.9 Vitamin B12 deficiency anemia, unspecified; L89.893 Pressure ulcer of other site, stage 3; E87.1 Hypo-osmolality and hyponatremia; N39.0 Urinary tract infection, site not specified; E66.2 Morbid (severe) obesity with alveolar hypoventilation; J98.11 Atelectasis; Z68.42 Body mass index [BMI] 45.0-49.9, adult; G47.33 Obstructive sleep apnea (adult) (pediatric); E03.9 Hypothyroidism, unspecified; K21.9 Gastro-esophageal reflux disease without esophagitis; I10 Essential (primary) hypertension; Z91.19 Patient's noncompliance with other medical treatment and regimen; T38.3X5A Adverse effect of insulin and oral hypoglycemic [antidiabetic] drugs, initial encounter; Z74.01 Bed confinement status; R60.9 Edema, unspecified; M17.0 Bilateral primary osteoarthritis of knee
CPT/HCPCS: 36415; 36416; 51702; 71010; 71275; 74177; 80048; 80053; 80061; 80202; 81003; 81015; 82533; 82553; 82607; 82728; 82746; 82805; 83036; 83525; 83540; 83550; 83880; 84145; 84443; 84484; 84681; 85025; 85379; 87040; 87077; 87086; 87149; 87186; 93005; 93306; 94640; 94660; 94760; 96365; 96375; A4216; A4217; G8978-GP-CM; G8979-GP-CK; G8979-GP-CM; G8980-GP-CM; J1940; J2543; J3370; J7050; J7620

== ENCOUNTER 2017-06-27 07:36 | Inpatient (IN) | payer MEDICARE ==
[2017-06-27] MEDS ORDERED: Dextrose 50% Abboject 50 ML SYRINGE ONE ×2 (07:55→09:07)
[2017-06-27 08:19] LABS: Hematocrit 27.1 % (36.0-47.0); Mean Platelet Volume 6.6 fL (7.4-10.4); Red Blood Cell (RBC) Count 2.55 mill/uL (4.20-5.40); White Blood Cell (WBC) Count 8.3 thou/uL (4.8-10.8)
[2017-06-27 08:29] LABS: ALT (SGPT) 12 U/L (8-55); AST (SGOT) 16 U/L (5-34); Alkaline Phosphatase 105 U/L (40-150); Anion Gap 15 mmol/L (10-20); BUN (Urea Nitrogen) 51 mg/dL (9.8-20.1); Bilirubin, Total 0.2 mg/dL (0.2-1.2); CK (CPK) 34 U/L (29-168); Calc. Creatinine Clearance 0 mL/min (70-130); Calcium 9.2 mg/dL (7.8-10.44); Carbon Dioxide 25 mmol/L (23-31); Chloride 106 mmol/L (98-107); Estimated GFR-MDRD 72; Globulin 3.2 g/dL (2.4-3.5); Protein, Total 6.5 g/dL (6.0-8.3)
[2017-06-27 08:34] LABS: Troponin I 0.012 ng/mL (< 0.028)
[2017-06-27 08:58] LABS: #Eosinphils 0.2 thou/uL (0.0-0.7); #Lymphocytes 1.1 thou/uL (1.20-3.40); #Monocytes 0.7 thou/uL (0.11-0.59); #Neutrophils 6.3 thou/uL (1.40-6.50); %Basophils 0.4 % (0.0-1.0); %Lymphocytes 13.6 % (21.0-51.0); %Monocytes 7.9 % (0.0-10.0); Macrocytosis SLIGHT = 6-15 cells (100X) (0-5/hpf)
--- NOTE | 2017-06-27 09:02 | RAD ---
PORTABLE CHEST: Date: 06/27/17 COMPARISON: 06/13/17 study. HISTORY: Respiratory distress. FINDINGS: Heart size is enlarged. Pleural and parenchymal lung changes appear fairly stable as compared to that prior exam. Pulmonary vessels appear engorged. IMPRESSION: Cardiomegaly with pulmonary vascular engorgement and increased parahilar markings suggesting pulmonar y edema with increased density in the basis suggesting associated effusions. Changes are similar to t he prior study. POS: EDIN
[2017-06-27 09:03] LABS: Bilirubin Small (Negative); Blood, Urine Moderate (Negative); Glucose, Urine (Dipstick) Negative (Negative); Ketone, Urine Negative (Negative); Nitrite Negative (Negative); Protein, Urine (Dipstick) 30 mg/dL (Neg-Trace); Urobilinogen 0.2 mg/dL (0.2-1.0)
[2017-06-27 09:05] LABS: Bacteria/HPF Rare-Few HPF (None Seen)
[2017-06-27 09:22] LABS: Hyaline Casts/LPF NONE SEEN LPF (0-3 Hyaline); Transitional Epithelial NONE SEEN HPF (0-3)
[2017-06-27] MEDS ORDERED: Octreotide Acetate 100 MCG/ML VIAL SC SCH (09:30)
[2017-06-27 11:29] LABS: Troponin I Less than 0.010 ng/mL (< 0.028)
[2017-06-27 12:05] LABS: Hemoglobin A1c 4.4 % (4.0-6.0)
[2017-06-27] MEDS ORDERED: Ondansetron HCl/PF 4 MG/2 ML Vial IVP PRN (13:25)
--- NOTE | 2017-06-27 13:28 | HP ---
DATE OF OBSERVATION INITIALLY: 06/27/2017 CHIEF COMPLAINT: Hypoglycemia. HISTORY OF PRESENT ILLNESS: Patient is a 76-year-old female who is a resident of [facility]. She had recently been hospitalized for a similar episode on 06/10/2017 and was in the [facility] for many days where her blood sugar remained too low to get off of D10. This was fel t to be due to the long-sustained effects of glimepiride. When she was discharged from that hospital ization, the glimepiride was not to be used again; however, at the time of this admission, it was not ed that they had started her back on her glimepiride and that is probably the source of her unrespons etienne hypoglycemia. Despite attempts to feed her and to keep the blood sugar up, we are not able to ma intain it. In the ER, glucose level was 21, after getting D10 initially, we were able to elevate it from 34 and finally to 40. It is also noted on admission that she has a urinary tract infection. PAST MEDICAL HISTORY: Significant for extreme morbid obesity with sedentary lifestyle resulting in n umerous stasis decubiti, hypertension, severe obstructive sleep apnea, noncompliant with CPAP, osteoa rthritis of the knees, hypothyroidism, chronic back pain, depression, anxiety, B12 deficiency, and GE RD. PAST SURGICAL HISTORY: Includes cholecystectomy. ALLERGIES: She has no known drug allergies. MEDICATIONS ON ADMISSION: Include Paxil 20 mg daily, Protonix 40 mg daily, hydrochlorothiazide 25 mg daily, BuSpar 10 mg t.i.d., Actos 30 mg which will be held, levothyroxine 25 mcg daily. FAMILY HISTORY: Very strong for other relatives with diabetes, chronic kidney disease with one siste r on dialysis. No history of cancer. SOCIAL HISTORY: The patient does not smoke or drink and resides at [facility]. REVIEW OF SYSTEMS: Constitutional: She has chronic fatigue and also states she has no appetite, but remains extremely obese. Central nervous system: There is no history of syncope, TIA, seizures or headaches. Respiratory: Denies coughing, dyspnea. Heart: She is denying arrhythmias or chest pain at this time. Abdomen: She is denying nausea, vomiting, diarrhea. Skin: No acute rashes, but she has numerous decubitus in all the dependent portions of her body. Extremities: Denies any major torrey int heat, but has chronic diffuse pain in her knees and major joints. Psychiatric: She has anxiety and she states her depression is controlled at this time. She denies hallucinations or delusions. PHYSICAL EXAMINATION: VITAL SIGNS: At the time of admission, patient is noteworthy for extreme morbid obesity, in no acute distress, alert, easily arousable, coherent, logical. HEENT: Normocephalic and atraumatic. Pupils equal, round, and reactive to light with arcus senilis bilaterally. TMs, nares, pharynx are clear. NECK: Supple, trachea midline, no mass, no bruits. CHEST: With good breath sounds bilaterally. No audible rales, wheezing or rhonchi. HEART: Regular rate and rhythm without murmur. BREAST: Deferred. ABDOMEN: Extreme obesity prevents detection of any organomegaly. She is nontender in all quadrants. GENITOURINARY: Deferred. EXTREMITIES: Without clubbing or cyanosis. There is 1+ edema in the lower extremities. She has isc hemic left great toe tip and numerous decubiti in the small of her back and several other areas. NEUROLOGIC: Cranial nerves are intact. Sensory exam is intact. Mental status is at baseline and no nfocal. Unable to test gait and cerebellar function due to bed-fastness. LABORATORY DATA: The lab work on admission showed WBCs 8.3, hemoglobin 8.5, hematocrit 27.1 with stephania telets at 278. Sodium 141, potassium 4.5, chloride 106, CO2 25, BUN 51 with creatinine 0.78, glucose of 21, repeat glucose 34 and 40. UA shows moderate blood with large leukocyte esterase and WBCs too numerous to count. X-RAY FINDINGS: Chest x-ray significant for cardiomegaly and pulmonary edema. ASSESSMENT: 1. Hypoglycemia, probably due to glimepiride. 2. Urinary tract infection. 3. Cardiomegaly with pulmonary edema. 4. Obstructive sleep apnea - poorly compliant with therapy. 5. Extreme morbid obesity. 6. Decubiti due to immobility. PLAN: Will be IMCU. We will use D10 and check her blood sugars hourly until they stabilized, then e very 2-4 hours once they have stabilized. Cultures of the urine have been taking, we will then start Rocephin 1 gram daily until the cultures returned for more specific treatment. We will instruct shahla eone to get her CPAP from [facility], so we can treat obstructive sleep apnea and Wound Care will be c onsulted for the numerous decubiti. She is placed in IMCU in stable condition and we will serially r eevaluate her.
[2017-06-27] MEDS ORDERED: Dextrose 10% in Water 1,000 ML IV SCH (13:30)
[2017-06-27] MEDS: busPIRone HCl 10 MG TAB PO SCH ×2 (14:09→21:32)
[2017-06-27] MEDS: Acetaminophen 325 MG TAB PO PRN (15:49)
[2017-06-27] MEDS: Furosemide 40 MG/4 ML VIAL SLOW IVP SCH (17:22)
[2017-06-28] MEDS: Levothyroxine Sodium 25 MCG TAB PO SCH (05:45)
[2017-06-28] MEDS: Furosemide 40 MG/4 ML VIAL SLOW IVP SCH ×2 (05:45→17:43)
[2017-06-28 06:21] LABS: #Eosinphils 0.2 thou/uL (0.0-0.7); #Lymphocytes 0.6 thou/uL (1.20-3.40); #Monocytes 0.5 thou/uL (0.11-0.59); #Neutrophils 4.4 thou/uL (1.40-6.50); %Basophils 0.5 % (0.0-1.0); %Eosinophils 3.9 % (0.0-10.0); %Lymphocytes 11.1 % (21.0-51.0); %Monocytes 7.9 % (0.0-10.0); Hematocrit 24.6 % (36.0-47.0); Mean Platelet Volume 6.9 fL (7.4-10.4); Red Blood Cell (RBC) Count 2.37 mill/uL (4.20-5.40); White Blood Cell (WBC) Count 5.7 thou/uL (4.8-10.8)
[2017-06-28 06:34] LABS: Anion Gap 11 mmol/L (10-20); BUN (Urea Nitrogen) 52 mg/dL (9.8-20.1); Calc. Creatinine Clearance 130 mL/min (70-130); Calcium 9.2 mg/dL (7.8-10.44); Carbon Dioxide 30 mmol/L (23-31); Chloride 103 mmol/L (98-107); Cholesterol 187 mg/dl (< 200 Desired); Estimated GFR-MDRD 67; LDL Cholesterol, Calculated 87 mg/dL
[2017-06-28] MEDS: busPIRone HCl 10 MG TAB PO SCH ×3 (09:18→21:03)
[2017-06-28] MEDS: Acetaminophen 325 MG TAB PO PRN (09:18)
[2017-06-28] MEDS: PARoxetine 20 MG TAB PO SCH (09:19)
--- NOTE | 2017-06-28 09:25 | RAD ---
PORTABLE CHEST: Date: 06/28/17 HISTORY: Respiratory distress. COMPARISON: Prior day's study. FINDINGS: Heart size is enlarged. Pulmonary edema changes and bilateral effusions are noted. Changes are very s imilar to the previous exam. No change. IMPRESSION: Cardiomegaly with pulmonary edema-type changes, stable. POS: [facility]
[2017-06-28] MEDS ORDERED: Dextrose 5% in Water 1,000 ML IV PRN (10:45)
[2017-06-28] MEDS: Sodium Chloride 0.45% 1,000 ML IV SCH (12:03)
[2017-06-29] MEDS: Sodium Chloride 0.45% 1,000 ML IV SCH ×2 (01:10→14:57)
[2017-06-29 05:23] LABS: #Eosinphils 0.2 thou/uL (0.0-0.7); #Lymphocytes 1.1 thou/uL (1.20-3.40); #Monocytes 0.5 thou/uL (0.11-0.59); #Neutrophils 4.5 thou/uL (1.40-6.50); %Basophils 0.1 % (0.0-1.0); %Eosinophils 3.1 % (0.0-10.0); %Lymphocytes 17.6 % (21.0-51.0); %Monocytes 7.9 % (0.0-10.0); Hematocrit 23.9 % (36.0-47.0); Mean Platelet Volume 6.6 fL (7.4-10.4); Red Blood Cell (RBC) Count 2.29 mill/uL (4.20-5.40); White Blood Cell (WBC) Count 6.3 thou/uL (4.8-10.8)
[2017-06-29 05:43] LABS: Anion Gap 10 mmol/L (10-20); BUN (Urea Nitrogen) 47 mg/dL (9.8-20.1); Calc. Creatinine Clearance 140 mL/min (70-130); Carbon Dioxide 32 mmol/L (23-31); Chloride 104 mmol/L (98-107); Estimated GFR-MDRD 73
[2017-06-29] MEDS: Levothyroxine Sodium 25 MCG TAB PO SCH (05:52)
[2017-06-29] MEDS: Furosemide 40 MG/4 ML VIAL SLOW IVP SCH ×2 (05:52→17:41)
[2017-06-29 06:06] VITALS: BMI 53.0
[2017-06-29 07:53] LABS: IRF 0.341 Ratio (0.163-0.362); Reticulocyte Count 2.6 % (0.5-1.5)
[2017-06-29 08:04] LABS: Iron 39 ug/dL (50-170)
[2017-06-29] MEDS: busPIRone HCl 10 MG TAB PO SCH ×3 (09:17→20:36)
[2017-06-29] MEDS: PARoxetine 20 MG TAB PO SCH (09:17)
[2017-06-29] MEDS: Acetaminophen 325 MG TAB PO PRN (13:06)
[2017-06-30] MEDS: Sodium Chloride 0.45% 1,000 ML IV SCH (04:24)
[2017-06-30 04:32] LABS: #Eosinphils 0.3 thou/uL (0.0-0.7); #Monocytes 0.5 thou/uL (0.11-0.59); #Neutrophils 4.3 thou/uL (1.40-6.50); %Eosinophils 4.1 % (0.0-10.0); %Lymphocytes 16.4 % (21.0-51.0); %Monocytes 8.6 % (0.0-10.0); Hematocrit 22.9 % (36.0-47.0); Mean Platelet Volume 6.4 fL (7.4-10.4); White Blood Cell (WBC) Count 6.1 thou/uL (4.8-10.8)
[2017-06-30 04:45] LABS: Anion Gap 9 mmol/L (10-20); BUN (Urea Nitrogen) 39 mg/dL (9.8-20.1); Calc. Creatinine Clearance 149 mL/min (70-130); Calcium 8.9 mg/dL (7.8-10.44); Carbon Dioxide 33 mmol/L (23-31); Chloride 101 mmol/L (98-107); Estimated GFR-MDRD 82
[2017-06-30] MEDS: Furosemide 40 MG/4 ML VIAL SLOW IVP SCH ×2 (05:19→17:37)
[2017-06-30] MEDS: Acetaminophen 325 MG TAB PO PRN ×2 (05:19→09:19)
[2017-06-30] MEDS: Levothyroxine Sodium 25 MCG TAB PO SCH (05:19)
--- NOTE | 2017-06-30 08:08 | PRG ---
DATE OF SERVICE: 06/30/2017 SUBJECTIVE: The patient is awake. She is slightly short of breath. She is on IV fluids. She is ea ting and drinking okay. Her blood sugars are stable. Her hemoglobin has dropped to 7.2. PHYSICAL EXAMINATION: GENERAL: Upon evaluation, she is awake. She is slightly short of breath. VITAL SIGNS: Stable. NECK: Supple. JVD cannot be assessed due to obese neck. Carotid had good upstroke with no thyromeg aleena. COR: Regular rate and rhythm. CHEST: Symmetrical. Clear to auscultation and percussion in upper lobes. ABDOMEN: Soft and nontender with normoactive bowel sounds. No bruit or organomegaly. EXTREMITIES: Trace edema. She had palpable pedal pulses. SKIN: There is no evidence of ulcers, lesion, or rash. NEUROLOGIC: She is awake, alert, and oriented to person, place, and time. ASSESSMENT: 1. Anemia of chronic disease. 2. Fluid overload. 3. Hypoglycemia, better. 4. Urinary tract infection. 5. Cardiomegaly. 6. Decubitus. PLAN: 1. The patient will be given 1 unit of packed red blood cells. We will also give Lasix after the bl ood. We will also discontinue IV fluids. 2. We will follow up with lab in the morning.
[2017-06-30] MEDS ORDERED: Furosemide 20 MG/2 ML VIAL SLOW IVP SCH (08:30)
--- NOTE | 2017-06-30 08:41 | RAD ---
UPRIGHT PORTABLE CHEST ONE VIEW: History: 76-year-old female with history of pulmonary edema. Comparison: 06-15-17 FINDINGS: Again noted is cardiomegaly with bilateral vascular congestion and bilateral pleural effusions on the right side. The previously noted left subclavian catheter has been removed. No pneumothorax. IMPRESSION: Evidence for congestive heart failure and pulmonary edema with cardiomegaly, vascular congestion, and pleural effusions and probably some underlying lower lobe parenchymal changes including atelectasis. Stable from prior study. POS: EDIN
[2017-06-30] MEDS: busPIRone HCl 10 MG TAB PO SCH ×3 (09:19→20:03)
[2017-06-30] MEDS: PARoxetine 20 MG TAB PO SCH (09:19)
[2017-07-01 04:51] LABS: #Eosinphils 0.3 thou/uL (0.0-0.7); #Monocytes 0.5 thou/uL (0.11-0.59); #Neutrophils 4.1 thou/uL (1.40-6.50); %Basophils 0.1 % (0.0-1.0); %Eosinophils 4.5 % (0.0-10.0); %Lymphocytes 16.9 % (21.0-51.0); %Monocytes 7.9 % (0.0-10.0); Mean Platelet Volume 6.9 fL (7.4-10.4); Red Blood Cell (RBC) Count 2.62 mill/uL (4.20-5.40); White Blood Cell (WBC) Count 5.7 thou/uL (4.8-10.8)
[2017-07-01] MEDS: Levothyroxine Sodium 25 MCG TAB PO SCH (05:18)
[2017-07-01] MEDS: Furosemide 40 MG/4 ML VIAL SLOW IVP SCH (05:18)
[2017-07-01 05:21] LABS: ALT (SGPT) 12 U/L (8-55); AST (SGOT) 14 U/L (5-34); Alkaline Phosphatase 84 U/L (40-150); Anion Gap 11 mmol/L (10-20); BUN (Urea Nitrogen) 34 mg/dL (9.8-20.1); Bilirubin, Total 0.3 mg/dL (0.2-1.2); Calc. Creatinine Clearance 154 mL/min (70-130); Calcium 9.2 mg/dL (7.8-10.44); Carbon Dioxide 32 mmol/L (23-31); Chloride 102 mmol/L (98-107); Estimated GFR-MDRD 84; Globulin 2.9 g/dL (2.4-3.5); Protein, Total 5.9 g/dL (6.0-8.3)
[2017-07-01] MEDS: busPIRone HCl 10 MG TAB PO SCH (08:43)
[2017-07-01] MEDS: PARoxetine 20 MG TAB PO SCH (08:44)
[2017-07-01] MEDS: Acetaminophen 325 MG TAB PO PRN (08:47)
[2017-07-01] MEDS ORDERED: Furosemide 40 MG/4 ML VIAL SLOW IVP SCH ×2 (11:15→11:45)
[2017-07-01 12:09] VITALS: BP 151/72; TEMP 98.3
== END 2017-07-01 12:10 | DRG 638 ==
LOC: ERS 07:36 → IMCU/EMU 13:04 → T4-A 06-29 13:42
PROVIDERS: ADMIT Specialist; ATTEND Specialist
PROC: 30233N1 Transfusion of Nonautologous Red Blood Cells into Peripheral Vein, Percutaneous Approach (ICD-10-PCS; principal; 2017-06-30)
DX: E11.649 Type 2 diabetes mellitus with hypoglycemia without coma (principal); N39.0 Urinary tract infection, site not specified; L89.151 Pressure ulcer of sacral region, stage 1; J81.1 Chronic pulmonary edema; L89.899 Pressure ulcer of other site, unspecified stage; Z68.43 Body mass index [BMI] 50.0-59.9, adult; E66.01 Morbid (severe) obesity due to excess calories; T38.3X5A Adverse effect of insulin and oral hypoglycemic [antidiabetic] drugs, initial encounter; G47.33 Obstructive sleep apnea (adult) (pediatric); Z91.19 Patient's noncompliance with other medical treatment and regimen; E03.9 Hypothyroidism, unspecified; F32.9 Major depressive disorder, single episode, unspecified; K21.9 Gastro-esophageal reflux disease without esophagitis
CPT/HCPCS: 36415; 36416; 36430; 51701; 71010; 80048; 80053; 80061; 81003; 81015; 82553; 82607; 83036; 83540; 83550; 83690; 83880; 84443; 84484; 85025; 85046; 86850; 86900; 86901; 87040; 87086; 93005; 93798; 94660; 94760; 96361; 96372; 96374; 96376; A4216; A4353; J0696; J1940; J2354; P9016

== ENCOUNTER 2019-02-12 13:12 | Inpatient (IN) | payer MEDICARE, MEDICAID ==
[2019-02-12] MEDS ORDERED: Albuterol Sulfate 2.5 mg/3 ml Neb ONE (13:33)
[2019-02-12 13:59] LABS: Base Excess-Venous 2.2 mmol/L (-2.0 to 3.0); Bicarbonate (HCO3v) 30.5 mmol/L (22.0-28.0); Calcium, Ionized 1.25 mmol/L (See Comments:); Chloride 111 mmol/L (98-107); Hemoglobin - Calc 11.8 g/dL (12.0-16.0); Potassium 5.2 mmol/L (3.5-5.1); Sodium 142 mmol/L (138-145); T. Carbon Dioxide 32.6 mmol/L (22.0-28.0); vO2 Saturation-calc 79.8 % (60.0-85.0)
[2019-02-12 14:02] LABS: #Eosinphils 0.2 thou/uL (0.0-0.7); #Lymphocytes 1.6 thou/uL (1.20-3.40); #Monocytes 0.6 thou/uL (0.11-0.59); #Neutrophils 10.4 thou/uL (1.40-6.50); %Eosinophils 1.5 % (0.0-10.0); %Lymphocytes 12.3 % (21.0-51.0); %Monocytes 4.3 % (0.0-10.0); %Neutrophils 81.8 % (42.0-75.0); Hemoglobin 10.5 g/dL (12.0-16.0); Mean Corpuscular HGB CONC 31.5 g/dL (32.0-36.0); Mean Corpuscular Hemoglobin 31.4 pg (27.0-31.0); Mean Corpuscular Volume 99.9 fL (78.0-98.0); Mean Platelet Volume 7.9 fL (7.4-10.4); Platelet Count 264 thou/uL (130-400); Red Blood Cell (RBC) Count 3.35 mill/uL (4.20-5.40); White Blood Cell (WBC) Count 12.7 thou/uL (4.8-10.8)
[2019-02-12 14:25] LABS: ALT (SGPT) 12 U/L (8-55); AST (SGOT) 20 U/L (5-34); Albumin 3.8 g/dL (3.4-4.8); Alkaline Phosphatase 114 U/L (40-150); Anion Gap 13 mmol/L (10-20); BUN (Urea Nitrogen) 27 mg/dL (9.8-20.1); Bilirubin, Total 0.5 mg/dL (0.2-1.2); CK (CPK) 62 U/L (29-168); Calc. Creatinine Clearance 0 mL/min (70-130); Carbon Dioxide 27 mmol/L (23-31); Chloride 107 mmol/L (98-107); Estimated GFR-MDRD 77; Globulin 3.2 g/dL (2.4-3.5); Glucose 132 mg/dL (83-110); Sodium 142 mmol/L (136-145)
[2019-02-12 14:46] LABS: CKMB 3.7 ng/mL (0-6.6)
--- NOTE | 2019-02-12 14:49 | RAD ---
RADIOGRAPH CHEST 1 VIEW: DATE: 02/12/2019 TIME: 12:31 PM HISTORY: 78-year-old female with dyspnea and hypoxemia. COMPARISON: 06/30/2017. FINDINGS: Very limited study because of body habitus and craniocaudal angulation of the x-ray beam. Dense opaci fication of the lower two thirds of the lungs. Relative sparing of lung apices. No pneumothorax identified. The findings are very similar to those of the prior study. IMPRESSION: 1. Very limited study. 2. Extensive airspace disease in the bilateral lungs. Possibilities include pulmonary alveolar edema, severe atelectasis, or severe bilateral pneumonia. 3. There are probably bilateral pleural effusions.
[2019-02-12 14:54] LABS: Actual Bicarbonate (HCO3a) 27.2 mEq/L (22-28); CO2 Tension 50.8 mmHg (35.0-45.0); O2 Tension (PaO2) 77.9 mmHg (> 70.0); pH, Arterial 7.35 (7.35-7.45)
[2019-02-12 14:55] LABS: Analyzer IN Cardio ER; Calcium, Ionized 1.27 mmol/L (1.12-1.30); Carboxyhemoglobin (COHb) 0.5 gm% (0.0-3.0); Hemoglobin (Hb) 10.8 g/dL (12.0-16.0); Potassium - ABG Lab 4.85 mmol/L (3.70-5.30); Puncture Site RRA
[2019-02-12] MEDS ORDERED: Aspirin Chewable 81 MG TAB ONE (15:07)
[2019-02-12] MEDS ORDERED: Furosemide 40 MG/4 ML VIAL ONE (15:08)
[2019-02-12] MEDS ORDERED: Nitroglycerin 2% Ointment 1 INCH/1 GM Packet ONE (15:08)
[2019-02-12 17:45] LABS: Troponin I 0.027 ng/mL (< 0.028)
[2019-02-12] MEDS ORDERED: Dextrose 5% in Water 1,000 ML IV PRN (18:25)
[2019-02-12] MEDS ORDERED: HumaLOG 300 UNITS/3 ML VIAL SC PRN ×2 (18:25)
[2019-02-12] MEDS ORDERED: Acetaminophen 325 MG TAB PO PRN (18:25)
[2019-02-12] MEDS ORDERED: Dextrose 50% Abboject 50 ML SYRINGE SLOW IVP PRN (18:25)
--- NOTE | 2019-02-12 19:22 | HP ---
PRIMARY CARE PHYSICIAN: Dr. Wendy Ghosh. CHIEF COMPLAINT: Shortness of breath. HISTORY OF PRESENT ILLNESS: The history of present illness is quite limited as the patient is currently on BiPAP and is unable to answer very many questions in a row due to dyspnea. But, Ms. Palacios is a very pleasant 78-year-old female, who has a history of diabetes mellitus as well as hypertension. She also has a history of chronic diastolic heart failure. She currently resides at a snf and was in her usual state of health until yesterday, when she says she was watching TV and then she became extremely short of breath. She says it actually had been building up on her for the last 2 weeks. She denies having any chest pain. She denies any palpitations. She also denies any swelling in her legs that she has noticed. But due to the extreme dyspnea, she came to the emergency room, where she was evaluated and found to be hypoxic, and chest x-ray showed bilateral pulmonary vascular congestion, and she is being admitted for further treatment. REVIEW OF SYSTEMS: CONSTITUTIONAL: There have been no fevers or chills. No night sweats. No weight loss. HEENT: She denies any headaches. No dizziness. No visual changes. No sore throat, rhinorrhea, or neck pain. No adenopathy. PULMONARY: No hemoptysis, no cough, no wheezing. CARDIOVASCULAR: As in the history of present illness. GASTROINTESTINAL: No nausea. No vomiting. No change in bowels. GENITOURINARY: No urinary frequency or hematuria. No hesitancy. NEUROLOGIC: No focal weakness or numbness. No seizures. PSYCHIATRIC: No symptoms of anxiety or depression. SKIN AND INTEGUMENT: No skin changes. No rash. PAST MEDICAL HISTORY: Significant for diabetes mellitus, hypertension, hyperlipidemia, and chronic diastolic heart failure. PAST SURGICAL HISTORY: She has a history of a cholecystectomy. ALLERGIES: NO KNOWN DRUG ALLERGIES. SOCIAL HISTORY: She is a nonsmoker and nondrinker. She is single. She has no children. She is a full code. Her sister, Almaz Sellers is her surrogate decision maker. FAMILY HISTORY: Significant for diabetes and hypertension. CURRENT MEDICATIONS: Include; 1. BuSpar 10 mg three times a day. 2. Folic acid 1 mg daily. 3. Pantoprazole 40 mg once daily. 4. Paroxetine 20 mg daily. 5. Polyethylene glycol or MiraLAX 17 g once daily. 6. Simvastatin 20 mg daily. 7. Iron sulfate 325 mg twice a day. 8. Multivitamin with iron once daily. 9. Metolazone 5 mg daily. 10. Furosemide 40 mg daily. 11. Potassium chloride 20 mEq three times a day. 12. Levothyroxine 50 mcg once daily. PHYSICAL EXAMINATION: GENERAL: She is alert and oriented. She is in some distress due to dyspnea. VITAL SIGNS: Blood pressure was 157/105, respiratory rate temperature, she is afebrile. HEENT: Her pupils are equal, round, and reactive. Extraocular muscles are intact. Her sclerae are anicteric. She did have some mild mucus drainage around the eyes or crusting, though there is no erythema. NECK: No adenopathy. HEART/LUNGS: She has distant heart sounds and decreased breath sounds. No obvious rales. CARDIOVASCULAR: Heart rate is bradycardic. Normal S1 and S2. I did not appreciate an S3 or S4. No murmurs or clicks or rubs. ABDOMEN: Obese. It is soft. It is nontender and nondistended. Positive for bowel sounds. No rebound. No guarding. EXTREMITIES: There is some mild edema and some venous stasis changes. She does have some muscle atrophy. NEUROLOGIC: She has significant weakness in both lower extremities. Otherwise, the remainder of the exam is nonfocal. SKIN AND INTEGUMENT: No significant rashes other than some mild bruising in the lower extremities. LABORATORY DATA: EKG, sinus rhythm. She has rate in the 60s. There is evidence of bigeminy, almost looks like Wenckebach, but there is no significant drop beat and no evidence of RI interval elongation. However, she does have a first-degree AV block, some T-wave inversions in 1 and aVL, this is by my reading. Chest x-ray, also by my reading shows increased pulmonary vascular markings and I am unable to determine her heart size and she has evidence of bilateral pleural effusions. ASSESSMENT: 1. This is a 78-year-old female, who is being admitted for acute respiratory failure with hypoxemia, likely due to acute on chronic diastolic heart failure. She will be admitted to the [facility]. Continue BiPAP. Continue IV Lasix. We will check an echocardiogram to assess her LV function. Pulmonology as well as Cardiology will be consulted. 2. Hypertension. Currently, her blood pressure is elevated. Hopefully, this will improve with diuresis. We will need to reconcile and restart home medications as tolerated as well as medication as needed. 3. Diabetes mellitus. We will initially place her on a sliding scale insulin as I do not see any scheduled diabetic medication. 4. Deep venous thrombosis and gastrointestinal prophylaxis will also be provided. Job ID: [id number]
[2019-02-12] MEDS: busPIRone HCl 10 MG TAB PO SCH (20:19)
[2019-02-12 20:47] LABS: Troponin I 0.017 ng/mL (< 0.028)
[2019-02-13 05:26] LABS: #Eosinphils 0.1 thou/uL (0.0-0.7); #Lymphocytes 1.2 thou/uL (1.20-3.40); #Monocytes 0.6 thou/uL (0.11-0.59); #Neutrophils 6.8 thou/uL (1.40-6.50); %Basophils 0.3 % (0.0-1.0); %Eosinophils 1.7 % (0.0-10.0); %Lymphocytes 14.1 % (21.0-51.0); %Monocytes 6.5 % (0.0-10.0); %Neutrophils 77.4 % (42.0-75.0); Hemoglobin 9.2 g/dL (12.0-16.0); Mean Corpuscular HGB CONC 32.4 g/dL (32.0-36.0); Mean Corpuscular Hemoglobin 31.9 pg (27.0-31.0); Mean Corpuscular Volume 98.4 fL (78.0-98.0); Mean Platelet Volume 7.5 fL (7.4-10.4); Platelet Count 215 thou/uL (130-400); RBC Distribution Width 12.9 % (11.5-14.5); Red Blood Cell (RBC) Count 2.87 mill/uL (4.20-5.40); White Blood Cell (WBC) Count 8.7 thou/uL (4.8-10.8)
[2019-02-13] MEDS: Levothyroxine Sodium 25 MCG TAB PO SCH (05:35)
[2019-02-13] MEDS: Furosemide 40 MG/4 ML VIAL SLOW IVP SCH ×2 (05:35→13:33)
[2019-02-13 05:42] LABS: Anion Gap 11 mmol/L (10-20); BUN (Urea Nitrogen) 27 mg/dL (9.8-20.1); Calc. Creatinine Clearance 127 mL/min (70-130); Calcium 9.3 mg/dL (7.8-10.44); Carbon Dioxide 30 mmol/L (23-31); Chloride 104 mmol/L (98-107); Estimated GFR-MDRD 82; Glucose 93 mg/dL (83-110); Potassium 4.6 mmol/L (3.5-5.1); Sodium 140 mmol/L (136-145)
--- NOTE | 2019-02-13 08:48 | CON ---
DATE OF CONSULTATION: HISTORY OF PRESENT ILLNESS: The patient is a 78-year-old woman with no known previous cardiac history, who was admitted with dyspnea and noted to have a slow heart rate. The patient has a history of diabetes mellitus and hypertension. She presents with acute onset of dyspnea. The patient denied having any chest discomfort. The patient was noted to have severe bradycardia. The patient has no history of syncope or loss of consciousness. PAST MEDICAL HISTORY: 1. Diabetes mellitus. 2. Hypertension. 3. Obesity. PAST SURGICAL HISTORY: She has had a cholecystectomy. SOCIAL HISTORY: Nonsmoker. FAMILY HISTORY: No significant strong family history of heart disease. MEDICATIONS: See nursing list. ALLERGIES: NO KNOWN DRUG ALLERGIES. REVIEW OF SYSTEMS: Ten-point systems otherwise unremarkable. PHYSICAL EXAMINATION: GENERAL: Obese woman, in no acute distress with a blood pressure of 137/42. NECK: No jugular venous distention. LUNGS: Crackles in both lung barbosa. HEART: Irregular rate and rhythm. Normal S1 and S2. ABDOMEN: Distended. EXTREMITIES: Show moderate edema. LABORATORY RESULTS: Did have a white blood cell count 8.7, hemoglobin 9.2, hematocrit 28.3, and platelets are 215. Sodium is 140, potassium 4.6, chloride 104, bicarbonate 30, BUN 27, creatinine 0.69. Troponin was 0.017. BNP was 355. IMAGING STUDIES: EKG revealed sinus bradycardia with prolonged pauses with evidence of intermittent third-degree heart block. IMPRESSION: 1. Advanced heart block. 2. Congestive heart failure, probably diastolic. 3. Hypertension. 4. Diabetes mellitus. This patient has advanced heart block. She is asymptomatic, we will ask EP to evaluate. We will check the patient's echocardiogram. We will follow this patient with you through her hospitalization. Job ID: [id number]
[2019-02-13] MEDS: busPIRone HCl 10 MG TAB PO SCH ×3 (09:44→21:21)
[2019-02-13] MEDS: Folic Acid 1 MG TAB PO SCH (09:44)
[2019-02-13] MEDS: Aspirin 325 MG TAB PO SCH (09:45)
[2019-02-13] MEDS: Polyethylene Glycol 3350 17 GM Packet PO SCH (09:45)
[2019-02-13] MEDS: Enoxaparin Sodium 40 MG/0.4 ML SYRINGE SC SCH (09:45)
--- NOTE | 2019-02-13 14:40 | PDOC.PN ---
- Subjective Encounter Start Date: 02/13/19 Encounter Start Time: 11:30 Ms. Palacios was seen today in follow-up of acute respiratory failure- She says she is breathing better now. She is off BiPAP. She denies any chest pain or difficulty breathing. - Objective Resuscitation Status - Order Detail: 02/12/19 15:49 Resuscitation Status Routine Resuscitation Status: FULL: Full Resuscitation MAR Reviewed: Yes Vital Signs & Weight: Vital Signs (12 hours) Temp Pulse Ox 02/13/19 11:29 96.8 F L 02/13/19 08:00 98 02/13/19 07:33 97.0 F L 02/13/19 07:03 100 02/13/19 04:00 97.5 F L Weight Weight 257 lb 7 oz Most Recent Monitor Data Heart Rate from ECG 39 NIBP 134/53 NIBP BP-Mean 80 Respiration from ECG 14 SpO2 99 I&O: 02/12/19 02/13/19 02/14/19 06:59 06:59 06:59 Intake Total 600 Output Total 300 Balance 300 Result Diagrams: 02/13/19 04:49 02/13/19 04:49 Additional Labs: Accuchecks 02/13/19 02/13/19 02/12/19 10:39 05:36 20:21 POC Glucose 154 H 95 129 H Phys Exam - Physical Examination HEENT: PERRLA Respiratory: no wheezing, no rales, no rhonchi, clear to auscultation bilateral Cardiovascular: RRR, no significant murmur, no rub Gastrointestinal: soft, non-tender, no distention, positive bowel sounds Musculoskeletal: no edema Dx/Plan (1) Acute respiratory failure with hypoxia Code(s): J96.01 - ACUTE RESPIRATORY FAILURE WITH HYPOXIA Status: Acute (2) Morbid obesity Code(s): E66.01 - MORBID (SEVERE) OBESITY DUE TO EXCESS CALORIES Status: Acute (3) Physical deconditioning Code(s): R53.81 - OTHER MALAISE Status: Acute (4) Hypertension Code(s): I10 - ESSENTIAL (PRIMARY) HYPERTENSION Status: Acute (5) Bradycardia Code(s): R00.1 - BRADYCARDIA, UNSPECIFIED Status: Acute - Plan * Acute respiratory failure - likely from volume overload- or acute on chronic diastolic heart failure- awaiting the Echo results. She is off BiPAP now. Continue to diurese * Arrhythmia- her heart rate is still extremely slow, she is not symptomatic with this- she may require pacemaker placement * HTN- blood pressure has improved * Physical deconditioning- PT/OT once she is more stable * Morbid Obesity- she likely has some degree of obesity hypoventilation * DM- blood glucose is stable.
--- NOTE | 2019-02-13 15:36 | CON ---
DATE OF CONSULTATION: HISTORY OF PRESENT ILLNESS: Ms. Palacios is a 78-year-old female. She was admitted to the Intermediate Care Unit yesterday afternoon with complaints of shortness of breath. She was initially admitted and placed on BiPAP. She says she has been progressively getting short of breath at the halfway for the last week. When I saw her today, she was off BiPAP and surprisingly in no distress. PAST MEDICAL HISTORY: Remarkable for, 1. Diastolic heart failure. 2. Diabetes. 3. Hypertension. 4. History of lipid disorder. 5. History of cholecystectomy. SOCIAL HISTORY: She is a nonsmoker, nondrinker, nondrug user. ALLERGIES: SHE HAS NO DRUG ALLERGIES. FAMILY HISTORY: Negative for lung disease in early age. She has a sister, who is her power of health care. MEDICATIONS: Prior to admission, she is on BuSpar, folate, Protonix, Paxil, MiraLAX, simvastatin, iron, vitamins, metolazone, Lasix, potassium, and Synthroid. PHYSICAL EXAMINATION: GENERAL: This is a very pleasant woman, in no distress. She appears her age. She has no complaints. VITAL SIGNS: Heart rate is in the high 30s to low 40s. Vital signs have been stable. HEENT: Pupils are equal. Sclerae are anicteric. NECK: Supple. No lymphadenopathy. LUNGS: Remarkable for crackles at both lung bases. HEART: Regular rhythm. She is bradycardic. ABDOMEN: Soft and nontender. EXTREMITIES: No clubbing, cyanosis, or edema. LABORATORY DATA: White count is 8.7, hemoglobin 9.2, platelets 215. Sodium 140, potassium 4.6, chloride 104, bicarb 30, BUN 27, and creatinine 0.6. Chest radiograph shows diffuse alveolar infiltrates. IMPRESSION: 1. Congestive heart failure, requiring BiPAP overnight, now clinically improved. 2. Intermittent third-degree heart block with bradycardia. She probably needs pacing. She will remain in the Intermediate Care Unit. She appears clinically stable at this time. Job ID: [id number]
[2019-02-13] MEDS: Losartan 25 MG TAB PO SCH (16:56)
[2019-02-14] MEDS: Levothyroxine Sodium 25 MCG TAB PO SCH (05:38)
[2019-02-14] MEDS: Furosemide 40 MG/4 ML VIAL SLOW IVP SCH ×2 (05:38→16:55)
[2019-02-14] MEDS: Losartan 25 MG TAB PO SCH (08:57)
[2019-02-14] MEDS: busPIRone HCl 10 MG TAB PO SCH ×3 (08:59→20:58)
[2019-02-14] MEDS: Aspirin 325 MG TAB PO SCH (08:59)
[2019-02-14] MEDS: Enoxaparin Sodium 40 MG/0.4 ML SYRINGE SC SCH (08:59)
[2019-02-14] MEDS: Folic Acid 1 MG TAB PO SCH (08:59)
[2019-02-14] MEDS: Polyethylene Glycol 3350 17 GM Packet PO SCH (09:00)
--- NOTE | 2019-02-14 09:35 | PRG ---
DATE OF SERVICE: 02/14/2019 SUBJECTIVE: The patient is awake and alert, has no acute complaints. OBJECTIVE: VITAL SIGNS: Temperature 98.0, O2 saturation 94% on 2 L, pulse is running in the 40s, blood pressure 150/52. HEENT: Remarkable for plethora. NECK: No JVD. LUNGS: Clear to auscultation anteriorly. CARDIAC: S1 and S2. Bradycardic. ABDOMEN: Soft. EXTREMITIES: No edema. LABORATORY DATA: No new labs were done today. ASSESSMENT: 1. Symptomatic bradycardia. 2. Morbid obesity. RECOMMENDATION: The patient is awaiting EP consult later today. She likely needs workup and testing for NADYA as an outpatient, if that has not been done already. We will continue to follow as long as she is in the [facility]. Job ID: [id number]
--- NOTE | 2019-02-14 12:15 | PDOC.PN ---
- Subjective Encounter Start Date: 02/14/19 Encounter Start Time: 12:12 Ms. Palacios was seen today in follow-up of acute respiratory failure and bradycardia. She is breathing better. She denies having any chest pain or difficulty breathing. - Objective Resuscitation Status - Order Detail: 02/12/19 15:49 Resuscitation Status Routine Resuscitation Status: FULL: Full Resuscitation MAR Reviewed: Yes Vital Signs & Weight: Vital Signs (12 hours) Temp Pulse Resp BP Pulse Ox 02/14/19 10:38 98.4 F 02/14/19 08:00 94 L 02/14/19 07:27 98.0 F 02/14/19 04:00 98.2 F 39 L 20 140/47 L 100 Weight Weight 261 lb Most Recent Monitor Data Heart Rate from ECG 42 NIBP 139/45 NIBP BP-Mean 76 Respiration from ECG 13 SpO2 97 I&O: 02/13/19 02/14/19 02/15/19 06:59 06:59 06:59 Intake Total 600 940 Output Total 300 2000 Balance 300 -1060 Result Diagrams: 02/13/19 04:49 02/13/19 04:49 Additional Labs: Accuchecks 02/14/19 02/14/19 02/13/19 10:12 05:52 21:20 POC Glucose 181 H 126 H 161 H 02/13/19 16:54 POC Glucose 147 H Phys Exam - Physical Examination HEENT: PERRLA Respiratory: no rhonchi + rales at the bases Cardiovascular: RRR, no significant murmur, no rub Gastrointestinal: soft, non-tender, no distention, positive bowel sounds Musculoskeletal: no edema, pulses present Dx/Plan (1) Acute respiratory failure with hypoxia Code(s): J96.01 - ACUTE RESPIRATORY FAILURE WITH HYPOXIA Status: Acute (2) Morbid obesity Code(s): E66.01 - MORBID (SEVERE) OBESITY DUE TO EXCESS CALORIES Status: Acute (3) Physical deconditioning Code(s): R53.81 - OTHER MALAISE Status: Acute (4) Hypertension Code(s): I10 - ESSENTIAL (PRIMARY) HYPERTENSION Status: Acute (5) Bradycardia Code(s): R00.1 - BRADYCARDIA, UNSPECIFIED Status: Acute (6) Hypothyroidism Code(s): E03.9 - HYPOTHYROIDISM, UNSPECIFIED Status: Chronic - Plan * Acute on chronic respiratory failure- improved. She has been stable off BiPAP * Echo results were noted * Bradycardia- await Cardiology recommendations regarding pacemaker * HTN- blood pressure is stable * Hypothyroidism- will check a TSH and free T4 .
[2019-02-14 13:29] LABS: Free T4 (Free Thyroxine) 1.23 ng/dL (0.70-1.48); Thyroid Stimulating Hormone 2.5792 uIU/mL (0.35-4.94)
[2019-02-14] MEDS ORDERED: Gentamicin 80 MG/2 ML VIAL ONE (13:55)
[2019-02-14] MEDS ORDERED: CEFAZOLIN 1 GM VIAL ONE ×2 (13:55→13:57)
[2019-02-14] MEDS ORDERED: Midazolam HCl 2 mg/2 ml Vial ONE ×2 (14:41→15:18)
[2019-02-14] MEDS ORDERED: Acetaminophen/Codeine 30-300mg Tablet PO PRN (16:25)
--- NOTE | 2019-02-14 16:49 | RAD ---
SINGLE VIEW OF THE CHEST: Comparison: 02-12-19 History: Status post cardiac pacemaker placement. FINDINGS: Single view of the chest shows an enlarged but stable cardiomediastinal silhouette. There is a left s ubclavian pacemaker with its leads in the right atrium and ventricle. No pneumothorax is seen. There are moderate bilateral pleural effusions with adjacent atelectasis versus infiltrates. IMPRESSION: Status post pacemaker placement without evidence of complication. POS: C
[2019-02-15 00:14] VITALS: BP 136/64
[2019-02-15] MEDS: Furosemide 40 MG/4 ML VIAL SLOW IVP SCH ×2 (06:28→15:47)
[2019-02-15] MEDS: Levothyroxine Sodium 25 MCG TAB PO SCH (06:28)
--- NOTE | 2019-02-15 08:26 | PRG ---
DATE OF SERVICE: 02/15/2019 SUBJECTIVE: The patient is doing better. Has no complaints. She had pacemaker placed yesterday. OBJECTIVE: VITAL SIGNS: Temperature is 97.3, pulse 69, blood pressure 153/55, O2 saturation 98%. HEENT: Unremarkable. NECK: No adenopathy or JVD. LUNGS: Clear to auscultation. CARDIAC: S1, S2 regular. Pacemaker noted, left upper quadrant chest. ABDOMEN: Soft, obese, nontender. EXTREMITIES: No clubbing, cyanosis, or edema. LABORATORY DATA: Accu-Cheks have been running in the low to high 100s. ASSESSMENT: 1. Status post pacemaker placement for symptomatic bradycardia. 2. Morbid obesity. 3. Obstructive sleep apnea. PLAN: The patient says she has had a sleep study in the past and has a CPAP at home. She seems stable from a Pulmonary standpoint for transfer out to Telemetry floor, possibly home when okay with Cardiology. No further recommendations. We will sign off. Job ID: [id number]
[2019-02-15] MEDS: Losartan 25 MG TAB PO SCH (09:12)
[2019-02-15] MEDS: Folic Acid 1 MG TAB PO SCH (09:12)
[2019-02-15] MEDS: Polyethylene Glycol 3350 17 GM Packet PO SCH (09:12)
[2019-02-15] MEDS: Aspirin 325 MG TAB PO SCH (09:12)
[2019-02-15] MEDS: busPIRone HCl 10 MG TAB PO SCH ×3 (09:12→20:19)
--- NOTE | 2019-02-15 13:23 | CCL ---
DATE OF PROCEDURE: 02/14/19 INDICATION: This is a 78-year-old female with symptomatic bradycardia. She was advised to undergo a dural chamber pacemaker insertion. She was taken to the cardiac electrical laboratory technician, prepped and draped in the sterile fashion where she underwent the procedure without difficulties or complications. A full dictated note can be found on the chart. She was implanted with an Dim[place] dual chamber pacemaker from [employer] with two screw-in leads, one in the atrium and on the ventricle. There were no difficulties or complications encountered. She was gi krissy 4 mg of IV versed for conscious sedation and throughout the procedure was monitored by an indepjermain dent observer present for heart rate, blood pressure and O2 saturation and remained stable throughout the procedure. She also required a venogram to visualize the subclavian vein. This was done without difficulties. Due to the obesity of the patient it was somewhat difficult to engage the vein but afte r the IV contrast, we had no problems engaging the vein. No difficulties or complications were encoun tered. The pacemaker was set with an upper rate of 120 and lower rate set at 60.
--- NOTE | 2019-02-15 16:30 | PDOC.PN ---
- Subjective Encounter Start Date: 02/15/19 Encounter Start Time: 16:28 Subjective: Admitted with worsening SOB. -: Also found to have advanced heart block s/p pacemaker placement. -: Feeling better. - Objective Resuscitation Status - Order Detail: 02/12/19 15:49 Resuscitation Status Routine Resuscitation Status: FULL: Full Resuscitation Vital Signs & Weight: Vital Signs (12 hours) Temp Pulse Ox 02/15/19 15:47 97.3 F L 02/15/19 11:06 97.6 F 02/15/19 08:00 97 02/15/19 07:36 97.3 F L Weight Weight 261 lb 3.2 oz Most Recent Monitor Data Heart Rate from ECG 74 NIBP 138/54 NIBP BP-Mean 82 Respiration from ECG 17 SpO2 95 I&O: 02/14/19 02/15/19 02/16/19 06:59 06:59 06:59 Intake Total 940 710 Output Total 2000 2100 Balance -1060 -1390 Result Diagrams: 02/13/19 04:49 02/13/19 04:49 Additional Labs: Accuchecks 02/15/19 02/15/19 02/14/19 10:39 05:59 20:24 POC Glucose 177 H 116 H 194 H Phys Exam - Physical Examination Constitutional: NAD morbidly obese HEENT: moist MMs fair air entry bilaterally, decreased at the bases Cardiovascular: RRR Gastrointestinal: soft, non-tender, no distention, positive bowel sounds morbidly obese Musculoskeletal: no edema, pulses present awake and conversational. cranial nerves are grossly normal. Dx/Plan (1) Heart block Code(s): I45.9 - CONDUCTION DISORDER, UNSPECIFIED Status: Acute (2) Acute on chronic diastolic (congestive) heart failure Code(s): I50.33 - ACUTE ON CHRONIC DIASTOLIC (CONGESTIVE) HEART FAILURE Status : Acute (3) NADYA on CPAP Code(s): G47.33 - OBSTRUCTIVE SLEEP APNEA (ADULT) (PEDIATRIC); Z99.89 - DEPENDENCE ON OTHER ENABLING MACHINES AND DEVICES Status: Acute (4) Diabetes mellitus Code(s): E11.9 - TYPE 2 DIABETES MELLITUS WITHOUT COMPLICATIONS Status: Acute (5) Acute respiratory failure with hypoxia Code(s): J96.01 - ACUTE RESPIRATORY FAILURE WITH HYPOXIA Status: Acute (6) Bradycardia Code(s): R00.1 - BRADYCARDIA, UNSPECIFIED Status: Acute (7) Hypertension Code(s): I10 - ESSENTIAL (PRIMARY) HYPERTENSION Status: Acute (8) Morbid obesity Code(s): E66.01 - MORBID (SEVERE) OBESITY DUE TO EXCESS CALORIES Status: Acute (9) Hypothyroidism Code(s): E03.9 - HYPOTHYROIDISM, UNSPECIFIED Status: Chronic - Plan transition lasix to oral. -: Transfer to tele. -: continue other treatments. -: Repeat CBXC and BMP in the am. * .
[2019-02-16 04:54] LABS: #Eosinphils 0.2 thou/uL (0.0-0.7); #Lymphocytes 1.6 thou/uL (1.20-3.40); #Monocytes 0.5 thou/uL (0.11-0.59); #Neutrophils 6.3 thou/uL (1.40-6.50); %Eosinophils 2.3 % (0.0-10.0); %Lymphocytes 18.3 % (21.0-51.0); %Monocytes 6.3 % (0.0-10.0); %Neutrophils 73.1 % (42.0-75.0); Hemoglobin 9.5 g/dL (12.0-16.0); Mean Corpuscular HGB CONC 32.5 g/dL (32.0-36.0); Mean Corpuscular Volume 98.3 fL (78.0-98.0); Mean Platelet Volume 8.4 fL (7.4-10.4); Platelet Count 199 thou/uL (130-400); Red Blood Cell (RBC) Count 2.98 mill/uL (4.20-5.40); White Blood Cell (WBC) Count 8.6 thou/uL (4.8-10.8)
[2019-02-16 05:01] LABS: Anion Gap 11 mmol/L (10-20); BUN (Urea Nitrogen) 40 mg/dL (9.8-20.1); Calc. Creatinine Clearance 116 mL/min (70-130); Calcium 9.4 mg/dL (7.8-10.44); Carbon Dioxide 34 mmol/L (23-31); Chloride 100 mmol/L (98-107); Estimated GFR-MDRD 74; Glucose 128 mg/dL (83-110); Potassium 4.1 mmol/L (3.5-5.1); Sodium 141 mmol/L (136-145)
[2019-02-16] MEDS: Furosemide 40 MG TAB PO SCH ×2 (05:50→15:20)
[2019-02-16] MEDS: Levothyroxine Sodium 25 MCG TAB PO SCH (05:50)
[2019-02-16] MEDS: Losartan 25 MG TAB PO SCH (10:15)
[2019-02-16] MEDS: busPIRone HCl 10 MG TAB PO SCH ×2 (10:15→15:19)
[2019-02-16] MEDS: Folic Acid 1 MG TAB PO SCH (10:15)
[2019-02-16] MEDS: Polyethylene Glycol 3350 17 GM Packet PO SCH (10:15)
[2019-02-16] MEDS: Aspirin 325 MG TAB PO SCH (10:15)
--- NOTE | 2019-02-16 14:55 | DIS ---
DATE OF ADMISSION: 02/12/2019 DATE OF DISCHARGE: 02/16/2019 PRIMARY CARE PHYSICIAN: Reji Torres MD DISCHARGE DIAGNOSES: 1. Acute respiratory failure with hypoxia. 2. Acute on chronic diastolic heart failure. 3. Advanced heart block. 4. Bradycardia. 5. Hypertension. 6. Morbid obesity. 7. Hypothyroidism. 8. Obstructive sleep apnea, on continuous positive airway pressure. 9. Type 2 diabetes mellitus. 10. Chronic debilitation with chronic bed-bound status. CONSULTS: 1. Pulmonary and Critical Care. 2. Cardiology. PROCEDURES PERFORMED: Pacemaker placement. HOSPITAL COURSE: A 78-year-old morbidly obese female, halfway resident with a chronic debilitation and bed bound status, who was brought in due to progressive worsening of shortness of breath since about 2 weeks. The patient was noticed to be in respiratory distress as well as respiratory failure, hence was started on noninvasive ventilator (BiPAP) as well as oxygen supplementation. Further evaluation revealed features consistent with acute on chronic diastolic heart failure, hence she was started on diuretics. She also was found to have advanced bradycardia necessitating Cardiology consult. With treatment of noninvasive respiratory support, oxygen and diuretics, the patient later was taken to cardiac cath and had pacemaker placement. She remained stable postprocedure and was subsequently discharged back to the halfway. The patient was advised to be very compliant with CPAP at night. She also was evaluated with echocardiogram, which showed ejection fraction of 50% to 55% with diastolic dysfunction as well as mild mitral and tricuspid regurgitation. PHYSICAL EXAMINATION: VITAL SIGNS: Temperature 98.4, pulse 79, respiratory rate 21, SpO2 of 97, and blood pressure 138/49. GENERAL: Morbidly obese female, in no obvious distress. Afebrile. Anicteric. Acyanotic. HEENT: Normocephalic, atraumatic. Pupils are reacting to light. Oral mucosa is moist. NECK: Short thick neck with excess subcutaneous tissue. No obvious JVD was appreciated. CARDIOVASCULAR: Regular rhythm and rate. Normal heart sounds 1 and 2. RESPIRATORY: Fair air entry bilateral, mildly decreased at both bases. No use of accessory muscles was appreciated. GI: Morbidly obese, soft, nontender, nondistended with normal bowel sounds. EXTREMITIES: No edema appreciated. Chronic vascular insufficiency changes noticed on the left lower extremity. NEUROLOGIC: Conscious and alert, oriented x3 with appropriate mental status. Cranial nerves 2 through 12 are intact. The patient is conversational. Power is 5/5 upper limbs and 3 to 4/5 lower limbs. SKIN: Patchy and annular erythematous scaly rash noticed on the left side of upper back extending to the skin fold on the left flank. DISCHARGE DISPOSITION: [facility]. DISCHARGE CONDITION: Improved. DISCHARGE MEDICATIONS: 1. Buspirone 10 mg p.o. t.i.d. 2. Cyanocobalamin 1000 mcg every 28 days. 3. Ferrous sulfate 325 mg p.o. b.i.d. 4. Folic acid 1 mg p.o. daily. 5. NPH insulin/Humulin insulin 70/30, 32 units with breakfast and 26 units at p.m. 6. Levothyroxine 50 mcg p.o. daily. 7. Metolazone 5 mg p.o. daily. 8. Multivitamin with minerals 1 tablet p.o. daily. 9. Protonix 40 mg p.o. daily. 10. Paroxetine 20 mg p.o. daily. 11. MiraLAX 17 g p.o. daily. 12. Potassium chloride 20 mEq p.o. daily. 13. Simvastatin 20 mg p.o. daily at bedtime. 14. Aspirin 325 mg p.o. daily. 15. Furosemide 40 mg p.o. b.i.d. 16. Losartan 100 mg p.o. daily. TIME SPENT: This discharge took more than 36 minutes. Job ID: [id number]
[2019-02-16 15:13] VITALS: TEMP 97
--- NOTE | 2019-02-16 16:50 | EKG ---
Test Reason : Blood Pressure : / mmHG Vent. Rate : 100 BPM Atrial Rate : 093 BPM P-R Int : 000 ms QRS Dur : 162 ms QT Int : 506 ms P-R-T Axes : 114 -58 080 degrees QTc Int : 652 ms Ventricular-paced rhythm Abnormal ECG Confirmed by JUAN HOYT ([id number]) on 02/16/2019 4:50:28 PM Referred By: AMANDA Confirmed By:JUAN HOYT
--- NOTE | 2019-02-16 17:07 | EKG ---
Test Reason : Blood Pressure : / mmHG Vent. Rate : 080 BPM Atrial Rate : 080 BPM P-R Int : 178 ms QRS Dur : 166 ms QT Int : 488 ms P-R-T Axes : 105 -60 081 degrees QTc Int : 562 ms Electronic ventricular pacemaker Abnormal ECG Confirmed by JUAN HOYT ([id number]) on 02/16/2019 5:07:21 PM Referred By: AMANDA Confirmed By:JUAN HOYT
--- NOTE | 2019-02-19 11:03 | EKG ---
Test Reason : Blood Pressure : / mmHG Vent. Rate : 065 BPM Atrial Rate : 065 BPM P-R Int : 000 ms QRS Dur : 120 ms QT Int : 432 ms P-R-T Axes : 000 -39 113 degrees QTc Int : 449 ms Sinus rhythm with 1st degree A-V block with Premature supraventricular complexes in a pattern of bige yasmani Left axis deviation Left ventricular hypertrophy with QRS widening and repolarization abnormality Abnormal ECG Confirmed by FELIPE BOLTON ([id number]), supervising editor trailer MARK GRIER ([id number]) on 02/19/2019 11:03:36 AM Referred By: Confirmed By:FELIPE BOLTON
== END 2019-02-16 16:42 | DRG 242 ==
LOC: ERS 13:12 → IMCU/EMU 15:11
PROVIDERS: ADMIT Internal Medicine; ATTEND Internal Medicine
PROC: 0JH606Z Insertion of Pacemaker, Dual Chamber into Chest Subcutaneous Tissue and Fascia, Open Approach (ICD-10-PCS; principal; 2019-02-12)
PROC: 02HK3JZ Insertion of Pacemaker Lead into Right Ventricle, Percutaneous Approach (ICD-10-PCS; 2019-02-12)
PROC: 02H63JZ Insertion of Pacemaker Lead into Right Atrium, Percutaneous Approach (ICD-10-PCS; 2019-02-12)
DX: I11.0 Hypertensive heart disease with heart failure (principal); J96.01 Acute respiratory failure with hypoxia; Z68.41 Body mass index [BMI] 40.0-44.9, adult; E11.9 Type 2 diabetes mellitus without complications; I50.33 Acute on chronic diastolic (congestive) heart failure; E78.00 Pure hypercholesterolemia, unspecified; E66.01 Morbid (severe) obesity due to excess calories; R00.1 Bradycardia, unspecified; G47.33 Obstructive sleep apnea (adult) (pediatric); I45.9 Conduction disorder, unspecified; Z79.899 Other long term (current) drug therapy; Z74.01 Bed confinement status
CPT/HCPCS: 33213; 36005; 36415; 36416; 71045; 75820; 80048; 80053; 82330; 82550; 82553; 82803; 82805; 83605; 83880; 84439; 84443; 84484; 85025; 93005; 93010; 93306; 94640; 94660; 94760; 96374; 99152; 99153; C1785; C1898; J0690; J1580; J1650; J1940; J2250; J7611; J7620

== ENCOUNTER 2019-10-27 12:07 | Inpatient (IN) | payer MEDICARE, MEDICAID ==
[2019-10-27 12:45] LABS: #Eosinphils 0.1 thou/uL (0.0-0.7); #Lymphocytes 0.7 thou/uL (1.20-3.40); #Monocytes 0.5 thou/uL (0.11-0.59); #Neutrophils 9.9 thou/uL (1.40-6.50); %Basophils 0.2 % (0.0-1.0); %Eosinophils 0.9 % (0.0-10.0); %Lymphocytes 6.6 % (21.0-51.0); %Monocytes 4.3 % (0.0-10.0); %Neutrophils 88.1 % (42.0-75.0); Hemoglobin 10.4 g/dL (12.0-16.0); Mean Corpuscular HGB CONC 31.1 g/dL (32.0-36.0); Mean Corpuscular Hemoglobin 31.6 pg (27.0-31.0); Mean Platelet Volume 7.5 fL (7.4-10.4); Platelet Count 266 thou/uL (130-400); RBC Distribution Width 13.5 % (11.5-14.5); Red Blood Cell (RBC) Count 3.28 mill/uL (4.20-5.40); White Blood Cell (WBC) Count 11.2 thou/uL (4.8-10.8)
--- NOTE | 2019-10-27 12:51 | RAD ---
EXAM: Single view of the chest HISTORY: Shortness of breath and dyspnea COMPARISON: 02/14/2019 FINDINGS: Single view of the chest shows an enlarged but stable cardiomediastinal silhouette. The pa cemaker is unchanged in position. There are small bilateral pleural effusions with adjacent atelectasis versus infiltrates. The bones are unremarkable. IMPRESSION: Bilateral pleural effusions with bilateral lower lobe infiltrates.
[2019-10-27 13:08] LABS: ALT (SGPT) 13 U/L (8-55); AST (SGOT) 17 U/L (5-34); Albumin 3.7 g/dL (3.4-4.8); Alkaline Phosphatase 119 U/L (40-110); Anion Gap 13 mmol/L (10-20); BUN (Urea Nitrogen) 28 mg/dL (9.8-20.1); Bilirubin, Total 0.2 mg/dL (0.2-1.2); Calc. Creatinine Clearance 0 mL/min (70-130); Calcium 9.7 mg/dL (7.8-10.44); Carbon Dioxide 37 mmol/L (23-31); Chloride 95 mmol/L (98-107); Estimated GFR-MDRD 85; Globulin 3.1 g/dL (2.4-3.5); Glucose 123 mg/dL (83-110); Potassium 5.2 mmol/L (3.5-5.1); Protein, Total 6.8 g/dL (6.0-8.3); Sodium 140 mmol/L (136-145)
[2019-10-27] MEDS ORDERED: Sodium Chloride 0.9% 100 ML ONE (13:13)
[2019-10-27] MEDS ORDERED: Cefepime 2 GM VIAL ONE (13:13)
[2019-10-27] MEDS ORDERED: Vancomycin 1 GM/200 ML BAG ONE (14:11)
[2019-10-27] MEDS ORDERED: Ondansetron ODT 4 MG TAB PO PRN (18:44)
[2019-10-27] MEDS ORDERED: HumaLOG 300 UNITS/3 ML VIAL SC PRN ×2 (18:44)
[2019-10-27] MEDS ORDERED: Ondansetron PF 4 MG/2 ML Vial IVP PRN (18:44)
[2019-10-27] MEDS ORDERED: Dextrose 50% Abboject 50 ML SYRINGE SLOW IVP PRN (18:44)
[2019-10-27] MEDS ORDERED: Acetaminophen 500 MG TAB PO PRN (18:44)
[2019-10-27] MEDS ORDERED: Furosemide 20 MG/2 ML VIAL SLOW IVP SCH (18:44)
[2019-10-27] MEDS ORDERED: Dextrose 5% in Water 1,000 ML IV PRN (18:44)
[2019-10-27] MEDS ORDERED: hydrALAZINE 20 MG/ML VIAL SLOW IVP PRN (18:44)
[2019-10-27] MEDS ORDERED: Benzonatate 100 MG CAP PO PRN (18:44)
--- NOTE | 2019-10-27 19:01 | HP ---
PRIMARY CARE PROVIDER: Dr. Ghosh. CHIEF COMPLAINT: Shortness of breath. HISTORY OF PRESENT ILLNESS: This is a 78-year-old female, who resides at [facility] over the last 3 years, presenting with increased shortness of breath, and cough. The patient states the symptoms began in the last 24 hours. Denied any sick contacts, exposure history, travel or exposure to COVID-19. The patient states she was last admitted to [facility] in February of 2019 for a respiratory failure, multifactorial including diastolic heart failure. The patient states she uses oxygen at baseline 2 to 3 L/minute by nasal cannula. Nonambulatory at baseline, receiving full care at [facility]. Rest of the history was obtained after review of the electronic medical record in discussion with the patient's nephew at the bedside as the patient is a poor historian. No documented fever, hemoptysis, dysuria, diarrhea, or change to her chronic medication regimen. In the emergency room, the patient underwent general evaluation, meeting sepsis criteria with tachycardia, tachypnea, and hypoxemia. Chest imaging showed bilateral infiltrates concerning for pneumonia at which point the patient received vancomycin and cefepime. The patient also received 1 L of normal saline. PAST MEDICAL HISTORY: 1. Chronic hypoxic respiratory failure, on oxygen supplementation at 2 L/minute by nasal cannula. 2. Chronic diastolic congestive heart failure with last ejection fraction, 02/2019 at 50% to 55%. 3. Complete heart block with pacemaker placement. 4. Hypertension. 5. Morbid obesity. 6. Bedbound status. 7. Hypothyroidism. 8. Obstructive sleep apnea. 9. Diabetes mellitus type 2. PAST SURGICAL HISTORY: 1. Status post cholecystectomy. 2. Status post pacemaker placement. CURRENT MEDICATIONS: Based on previous admission in 2019, 1. Ferrous sulfate 325 mg p.o. daily. 2. Vitamin B12 1000 mcg intramuscularly q.28 days. 3. BuSpar 10 mg p.o. t.i.d. 4. Folic acid 1 mg p.o. daily. 5. NPH insulin 32 units subcutaneously q.a.m. and 26 units subcutaneously at bedtime. 6. Levothyroxine 50 mcg p.o. daily. 7. Metolazone 5 mg p.o. daily. 8. Multivitamin 1 tablet p.o. daily. 9. Protonix 40 mg p.o. daily. 10. Paroxetine 20 mg p.o. daily. 11. Potassium chloride 20 mEq p.o. daily. 12. Simvastatin 20 mg p.o. at bedtime. 13. Aspirin 325 mg p.o. daily. 14. Lasix 40 mg p.o. b.i.d. 15. Cozaar 100 mg p.o. daily. ALLERGIES: NO KNOWN DRUG ALLERGIES. FAMILY HISTORY: Positive for diabetes mellitus and chronic kidney disease. SOCIAL HISTORY: Resides at [facility]. Accompanied by her nephew in the hospital. No current alcohol, tobacco, or illicit drug use. Worked at [facility] [employer] in the [employer] for over 40 years. Nonambulatory at baseline. REVIEW OF SYSTEMS: CONSTITUTIONAL: Negative for weight loss or gain, ability to conduct usual activities. SKIN: Negative for rash, itching. EYES: Negative for double vision, pain. ENT/MOUTH: Negative for nose bleeding, neck stiffness, pain, tenderness. CARDIOVASCULAR: Negative for palpitations, dyspnea on exertion, orthopnea. RESPIRATORY: Negative for shortness of breath, wheezing, cough, hemoptysis, fever or night sweats. GASTROINTESTINAL: Negative for poor appetite, abdominal pain, heartburn, nausea, vomiting, constipation, or diarrhea. GENITOURINARY: Negative for urgency, frequency, dysuria, nocturia. MUSCULOSKELETAL: Negative for pain, swelling. NEUROLOGIC/PSYCHIATRIC: Negative for anxiety, depression. ALLERGY/IMMUNOLOGIC: Negative for skin rash, bleeding tendency. Otherwise, negative, except as stated per HPI. PHYSICAL EXAMINATION: VITAL SIGNS: On admission, blood pressure 158/81, pulse 106, respiratory rate 27, temperature 97.5 degrees Fahrenheit, O2 saturation 97% on 3 L/minute by nasal cannula. GENERAL APPEARANCE: This is a 78-year-old female, sitting on the [facility], alert and oriented x1, pleasant, in mild to moderate respiratory distress. HEENT: Pupils are equal, round, reactive to light and accommodation. Extraocular muscles are intact. No scleral icterus. No conjunctival injection. Nares patent. OP is clear. Teeth in fair repair. NECK: Supple. No cervical adenopathy. No thyromegaly. No carotid bruits. No JVD appreciated. Cervical spine with full active and passive range of motion. No meningeal signs noted. CHEST: Diminished breath sounds bilaterally with coarse rhonchi bilaterally and crackles in the bases. CARDIOVASCULAR: S1 and S2 with distant heart sounds. Left upper chest wall with pacemaker device in place. ABDOMEN: Obese with landmarks difficult to palpate due to the patient's body habitus. No rebound or guarding appreciated. No palpable mass. Bowel sounds are positive in all 4 quadrants. EXTREMITIES: Warm and dry with fair turgor. No asymmetric edema of the lower extremities. Pulses palpable distally at the dorsalis pedis, posterior tibial, and popliteal arteries bilaterally. Capillary refill less than 2 seconds. SKIN: Shows large plaque in the left biggs with hyperpigmentation and scaling with peripheral erythema. Chronic stasis changes noted. NEUROLOGIC: Cranial nerves 2 through 12 are grossly intact. No focal or lateralizing signs appreciated. Alert and oriented x1. PERTINENT LABORATORY AND X-RAY FINDINGS: Sodium 140, potassium 5.2, chloride 95, CO2 of 37, BUN 28, creatinine 0.67, estimated GFR of 85, glucose 123, lactic acid level 1.3, calcium 9.7, magnesium 2.0. LFTs within normal limits. BNP 154, previously noted 356, 02/13/2019. CBC showed a white blood cell count of 11.2, hemoglobin 10.4, hematocrit 33, MCV 102, platelet count 266 with 88% neutrophils. Influenza A and B antigen negative, 10/27/2019. Portable chest x-ray dated, 10/27/2019, showed bilateral pleural effusions with associated bilateral lower lobe infiltrates. Pacemaker device in the left upper chest wall. EKG dated, 10/27/2019, by my interpretation shows sinus mechanism with first-degree AV block. Heart rate in the 90s. Complete right bundle-branch block. Left axis deviation. ASSESSMENT AND PLAN: 1. Sepsis secondarily to bilateral pneumonia. The patient will be admitted to the Intermediate Care Unit. We will continue general sepsis protocol. Continue cefepime 2 g IV q.12 hours with additional vancomycin 1 g IV q.12 hours. Serial lactic acid assessment per protocol. Blood and urine cultures pending. 2. Acute on chronic hypoxic respiratory failure. Suspect secondarily to #1. We will continue oxygen supplementation and maintain O2 saturations greater than or equal to 88%. Add DuoNeb's q.4 hours. 3. Healthcare-associated pneumonia. Suspect gram-negative organisms. Continue cefepime and vancomycin as outlined in #1. Establish current pneumonia vaccination prior to discharge. 4. Hyperkalemia. Mild elevation and potassium. We will continue low volume normal saline at 50 mL/h. Repeat potassium level in the a.m. Hold all potassium supplementation. 5. Diabetes mellitus type 2. Insulin sliding scale for reflexive coverage. Serial Accu-Cheks before meals and at bedtime. ADA diet when tolerating p.o. intake. Establish home insulin regimen. 6. Chronic debilitated state and bedbound status. Continue supportive management. Fall risk precautions. Consider PT, OT evaluation. 7. Left lower extremity chronic venous stasis dermatitis. We will consult Wound Care Service for evaluation and local care during the hospital course. 8. Prophylaxis. SCDs while in bed. Pepcid 20 mg p.o. b.i.d. 9. Code status is full. Surrogate medical decision maker is the patient's sister. Job ID: [id number]
[2019-10-27 21:48] VITALS: BMI 45.5
[2019-10-27] MEDS ORDERED: Lorazepam 2 MG/ML VIAL SLOW IVP SCH (22:15)
[2019-10-27] MEDS: Famotidine 20 MG TAB PO SCH (23:39)
[2019-10-27] MEDS: Sodium Chloride 0.9% 1,000 ML IV SCH (23:40)
[2019-10-28] MEDS: Cefepime 2 GM in Sodium Chloride 0.9% 100 ML IVPB SCH ×2 (02:23→12:25)
[2019-10-28] MEDS: Vancomycin 1.5 GRAM/300 ML BAG 1.5 GM in Premix Bag 1 BAG IVPB SCH ×2 (03:21→14:34)
[2019-10-28 03:40] LABS: Band 3 % (5-11); Hemoglobin 10.4 g/dL (12.0-16.0); Hypochromia SLIGHT = 6-15 cells (100X) (0-5/hpf); Lymphocytes 2 % (21-51); MDiff Complete? YES; Macrocytosis SLIGHT = 6-15 cells (100X) (0-5/hpf); Mean Corpuscular HGB CONC 32.4 g/dL (32.0-36.0); Mean Corpuscular Hemoglobin 33.2 pg (27.0-31.0); Mean Platelet Volume 7.5 fL (7.4-10.4); Metamyelocyte 2 % (0-0); Monocytes 1 % (0-10); Neutrophil 92 % (42-75); Platelet Count 250 thou/uL (130-400); Platelet Morphology Comment Appears Adequate; RBC Distribution Width 13.7 % (11.5-14.5); Red Blood Cell (RBC) Count 3.13 mill/uL (4.20-5.40); White Blood Cell (WBC) Count 10.1 thou/uL (4.8-10.8)
[2019-10-28 04:01] LABS: ALT (SGPT) 14 U/L (8-55); AST (SGOT) 17 U/L (5-34); Albumin 3.7 g/dL (3.4-4.8); Alkaline Phosphatase 116 U/L (40-110); Anion Gap 13 mmol/L (10-20); BUN (Urea Nitrogen) 27 mg/dL (9.8-20.1); Bilirubin, Total 0.4 mg/dL (0.2-1.2); Calc. Creatinine Clearance 124 mL/min (70-130); Calcium 9.5 mg/dL (7.8-10.44); Carbon Dioxide 36 mmol/L (23-31); Chloride 95 mmol/L (98-107); Estimated GFR-MDRD 79; Glucose 144 mg/dL (83-110); Potassium 4.7 mmol/L (3.5-5.1); Protein, Total 6.7 g/dL (6.0-8.3); Sodium 139 mmol/L (136-145)
[2019-10-28] MEDS: Furosemide 20 MG/2 ML VIAL SLOW IVP SCH ×2 (06:02→14:34)
[2019-10-28] MEDS: Famotidine 20 MG TAB PO SCH ×2 (09:40→20:03)
--- NOTE | 2019-10-28 15:03 | PDOC.HOSPP ---
- Subjective Encounter Date: 10/28/19 Encounter Time: 15:00 Subjective: f/u for acute/chronic hypoxic resp failure and suspected PNA/Sepsis on Cefepime/ Vancomycin. Nursing reports pt agitated overnight but has been sleeping most of the day and calm. - Objective Vital Signs & Weight: Vital Signs (12 hours) Temp Pulse Resp Pulse Ox 10/28/19 11:27 96.8 F L 10/28/19 10:56 80 21 H 99 10/28/19 08:12 99 10/28/19 08:02 78 19 99 10/28/19 08:00 98 10/28/19 07:34 96.7 F L 10/28/19 04:57 97 F L Weight Admit Weight 265 lb 3.2 oz Weight 265 lb 3.2 oz Most Recent Monitor Data Heart Rate from ECG 80 NIBP 160/61 NIBP BP-Mean 94 Respiration from ECG 23 SpO2 100 I&O: 10/27/19 10/28/19 10/29/19 06:59 06:59 06:59 Intake Total 845 Output Total 250 Balance 595 Result Diagrams: 10/28/19 03:16 10/28/19 03:16 Additional Labs: Accuchecks 10/28/19 10/28/19 10/28/19 12:39 06:08 00:24 POC Glucose 111 H 126 H 125 H Laboratory Tests 10/27/19 10/28/19 12:23 03:16 WBC 11.2 H Hgb 10.4 L Neutrophils % 88.1 H Neutrophils % (Manual) 92 H EKG Reviewed by me: Yes (Tele - V-pacing) Hospitalist ROS - Medication Medications: Active Medications Generic Name Dose Route Start Last Admin Trade Name Freq PRN Reason Stop Dose Admin Albuterol/Ipratropium 3 ml 10/27/19 19:00 10/28/19 10:56 Duoneb NEB 3 ml [id number] JIGNESH Administration Famotidine 20 mg 10/27/19 21:00 10/28/19 09:40 Pepcid PO 20 mg BID JIGNESH Administration Furosemide 20 mg 10/28/19 06:00 10/28/19 06:02 Lasix SLOW IVP 20 mg 0600,1400 JIGNESH Administration Cefepime HCl 2 gm/ Sodium 100 mls @ 200 mls/hr 10/28/19 01:00 10/28/19 12:25 Chloride IVPB 100 mls 0100,1300 JIGNESH Administration Sodium Chloride 1,000 mls @ 50 mls/hr 10/27/19 18:44 10/27/19 23:40 Normal Saline 0.9% IV 1,000 mls .Q20H JIGNESH Administration Vancomycin HCl 1.5 gm/ Device 300 mls @ 200 mls/hr 10/28/19 02:00 10/28/19 03 :21 IVPB 300 mls 0200,1400 JIGNESH Administration Sodium Chloride 10 ml 10/27/19 21:00 10/28/19 09:41 Flush - Normal Saline IVF 10 ml Q12HR JIGNESH Administration - Exam General - other findings: sleepy, lethargic Eye: PERRL, anicteric sclera ENT: normocephalic atraumatic, no oropharyngeal lesions Neck: supple, symmetric, no JVD, no thyromegaly Heart: RRR, no gallops, no rubs, normal peripheral pulses Heart - other findings: S1, S2 Respiratory - other findings: coarse sounds bilat, diminished bilat Gastrointestinal: soft, non-tender, non-distended, normal bowel sounds, no palpable masses Gastrointestinal - other findings: obese Extremities: no cyanosis, no clubbing Skin: normal turgor Skin - other findings: LLE with scaling, peripheral erythema of biggs Neurological: no new deficit Musculoskeletal: generalized weakness Psychiatric: oriented to person, somnolent, lethargic Hosp A/P (1) Sepsis due to pneumonia Code(s): J18.9 - PNEUMONIA, UNSPECIFIED ORGANISM; A41.9 - SEPSIS, UNSPECIFIED ORGANISM Status: Acute Plan: Suspected, continue Cefepime/Vancomycin, pulmonary supportive mgmt, O2 supplementation (2) Acute and chronic respiratory failure with hypoxia Code(s): J96.21 - ACUTE AND CHRONIC RESPIRATORY FAILURE WITH HYPOXIA Status: Acute Plan: continue O2 supplementation, Duonebs (3) HCAP (healthcare-associated pneumonia) Code(s): J18.9 - PNEUMONIA, UNSPECIFIED ORGANISM Status: Acute Plan: Suspected gm + cocci, continue Cefepime/Vancomycin (4) Hyperkalemia Code(s): E87.5 - HYPERKALEMIA Status: Acute Plan: Resolving, hold all K+, serial monitoring (5) Diabetes mellitus Code(s): E11.9 - TYPE 2 DIABETES MELLITUS WITHOUT COMPLICATIONS Status: Chronic Plan: ISS, serial accuchecks, (6) Morbid obesity Code(s): E66.01 - MORBID (SEVERE) OBESITY DUE TO EXCESS CALORIES Status: Chronic (7) NADYA on CPAP Code(s): G47.33 - OBSTRUCTIVE SLEEP APNEA (ADULT) (PEDIATRIC); Z99.89 - DEPENDENCE ON OTHER ENABLING MACHINES AND DEVICES Status: Acute Plan: Currently maintaining saturations on NC (8) Physical deconditioning Code(s): R53.81 - OTHER MALAISE Status: Chronic - Plan continue antibiotics, social studies teacher, respiratory therapy, DVT proph w/SCDs Continue supportive mgmt Continue Cefepime/Vancomycin Saline lock IVF's Await final blood cx results Hold KCL AM lab: BMP, CBC
[2019-10-28] MEDS: Sodium Chloride 0.9% 1,000 ML IV SCH (16:34)
[2019-10-28] MEDS: Ferrous Sulfate 325 MG TAB PO SCH (20:03)
[2019-10-28] MEDS: Nystatin Powder 15 GM BOT TOP SCH (20:04)
[2019-10-29] MEDS: Cefepime 2 GM in Sodium Chloride 0.9% 100 ML IVPB SCH ×2 (01:17→12:26)
[2019-10-29 01:31] LABS: Vancomycin, Trough 24.6 ug/mL
[2019-10-29 04:09] LABS: Anion Gap 13 mmol/L (10-20); BUN (Urea Nitrogen) 25 mg/dL (9.8-20.1); Calc. Creatinine Clearance 152 mL/min (70-130); Calcium 9.1 mg/dL (7.8-10.44); Carbon Dioxide 34 mmol/L (23-31); Chloride 97 mmol/L (98-107); Estimated GFR-MDRD Greater than 90; Glucose 153 mg/dL (83-110); Potassium 4.6 mmol/L (3.5-5.1); Sodium 139 mmol/L (136-145)
[2019-10-29 04:11] LABS: Band 2 % (5-11); Eosinophils 2 % (0-10); Hemoglobin 9.8 g/dL (12.0-16.0); Lymphocytes 12 % (21-51); MDiff Complete? YES; Mean Corpuscular HGB CONC 31.6 g/dL (32.0-36.0); Mean Corpuscular Hemoglobin 32.4 pg (27.0-31.0); Mean Platelet Volume 7.7 fL (7.4-10.4); Monocytes 3 % (0-10); Neutrophil 81 % (42-75); Platelet Count 223 thou/uL (130-400); Platelet Morphology Comment Appears Adequate; RBC Distribution Width 13.7 % (11.5-14.5); Red Blood Cell (RBC) Count 3.03 mill/uL (4.20-5.40); White Blood Cell (WBC) Count 9.9 thou/uL (4.8-10.8)
[2019-10-29] MEDS: Levothyroxine Sodium 50 MCG TAB PO SCH (05:42)
[2019-10-29] MEDS: Furosemide 20 MG/2 ML VIAL SLOW IVP SCH ×2 (05:42→14:01)
[2019-10-29] MEDS: PARoxetine 20 MG TAB PO SCH (09:58)
[2019-10-29] MEDS: Ferrous Sulfate 325 MG TAB PO SCH ×2 (09:59→21:10)
[2019-10-29] MEDS: Famotidine 20 MG TAB PO SCH ×2 (09:59→21:10)
[2019-10-29] MEDS: Aspirin 325 MG TAB PO SCH (09:59)
[2019-10-29] MEDS: Folic Acid 1 MG TAB PO SCH (09:59)
--- NOTE | 2019-10-29 10:07 | PDOC.HOSPP ---
- Subjective Encounter Date: 10/29/19 Encounter Time: 10:05 Subjective: Ms. Palacios was seen today in follow-up of pneumonia. She says she feels better, and is less short of breath. When I saw her she is mouth breathing and has audible airway noise. - Objective Vital Signs & Weight: Vital Signs (12 hours) Temp Pulse Resp Pulse Ox 10/29/19 07:30 75 22 H 100 10/29/19 07:26 96.6 F L 10/29/19 04:00 97.6 F 10/29/19 03:00 97.6 F 10/29/19 00:00 97.6 F Weight Admit Weight 265 lb 3.2 oz Weight 265 lb 3.2 oz Most Recent Monitor Data Heart Rate from ECG 79 NIBP 150/76 NIBP BP-Mean 100 Respiration from ECG 22 SpO2 99 I&O: 10/28/19 10/29/19 10/30/19 06:59 06:59 06:59 Intake Total 845 610 Output Total 250 1200 Balance 595 -590 Result Diagrams: 10/29/19 03:16 10/29/19 03:16 Additional Labs: Accuchecks 10/29/19 10/28/19 10/28/19 05:30 20:12 16:06 POC Glucose 169 H 166 H 107 10/28/19 12:39 POC Glucose 111 H Hospitalist ROS - Medication Medications: Active Medications Generic Name Dose Route Start Last Admin Trade Name Freq PRN Reason Stop Dose Admin Albuterol/Ipratropium 3 ml 10/27/19 19:00 10/29/19 07:30 Duoneb NEB 3 ml [id number] JIGNESH Administration Famotidine 20 mg 10/27/19 21:00 10/28/19 20:03 Pepcid PO 20 mg BID JIGNESH Administration Ferrous Sulfate 325 mg 10/28/19 21:00 10/28/19 20:03 Feosol PO 325 mg BID JIGNESH Administration Furosemide 20 mg 10/28/19 06:00 10/29/19 05:42 Lasix SLOW IVP 20 mg 0600,1400 JIGNESH Administration Cefepime HCl 2 gm/ Sodium 100 mls @ 200 mls/hr 10/28/19 01:00 10/29/19 01:17 Chloride IVPB 100 mls 0100,1300 JIGNESH Administration Insulin Human Lispro 0 units 10/27/19 18:44 10/29/19 05:42 Humalog SC 2 unit .MODERATE SLIDING SC PRN Administration Moderate Correctional Scale Levothyroxine Sodium 50 mcg 10/29/19 06:00 10/29/19 05:42 Synthroid PO 50 mcg 0600 JIGNESH Administration Nystatin 0 gm 10/28/19 21:00 10/28/19 20:04 Mycostatin Powder TOP 1 applic BID JIGNESH Administration Sodium Chloride 10 ml 10/27/19 21:00 10/28/19 20:04 Flush - Normal Saline IVF 10 ml Q12HR JIGNESH Administration - Exam Eye: PERRL Heart: RRR, no murmur, no gallops, no rubs, normal peripheral pulses Respiratory: rales (+ rales and rhonchi throughout bilaterally), rhonchi Gastrointestinal: soft, non-tender, non-distended, normal bowel sounds, no palpable masses Extremities: no cyanosis (+ chronic venous stasis changes L>R, dorsalis pedis pulses are non-palpable) Musculoskeletal: diffuse muscle atrophy (atrophy in both lower exrtemities) Hosp A/P (1) Acute and chronic respiratory failure with hypoxia Code(s): J96.21 - ACUTE AND CHRONIC RESPIRATORY FAILURE WITH HYPOXIA Status: Acute (2) HCAP (healthcare-associated pneumonia) Code(s): J18.9 - PNEUMONIA, UNSPECIFIED ORGANISM Status: Acute (3) Hypertension Code(s): I10 - ESSENTIAL (PRIMARY) HYPERTENSION Status: Chronic (4) Diabetes mellitus Code(s): E11.9 - TYPE 2 DIABETES MELLITUS WITHOUT COMPLICATIONS Status: Chronic (5) Morbid obesity Code(s): E66.01 - MORBID (SEVERE) OBESITY DUE TO EXCESS CALORIES Status: Chronic (6) Physical deconditioning Code(s): R53.81 - OTHER MALAISE Status: Chronic (7) NADYA (obstructive sleep apnea) Code(s): G47.33 - OBSTRUCTIVE SLEEP APNEA (ADULT) (PEDIATRIC) Status: Acute (8) Hypothyroidism Code(s): E03.9 - HYPOTHYROIDISM, UNSPECIFIED Status: Chronic - Plan * Acute on chronic respiratory failure due to pneumonia- continue Cefepime and Vancomycin * HTN- blood pressure is a bit elevated - will observe, and continue prn medication for now- re-start Losartan tomorrow * Hypothyroidism- she is clinically euthyroid * DM- Her blood glucose is an acceptable range- will start Lantus at a low dose , and then titrate back to her home dose as indicated * NADYA- continue CPAP/BiPAP at night and PRN * Morbid Obesity, and generalized deconditioning leaves her with very little pulmonary reserve- she is at risk for decompensation and her overall prognosis is guarded.
[2019-10-29] MEDS: Nystatin Powder 15 GM BOT TOP SCH ×2 (11:00→21:10)
[2019-10-29] MEDS: Vancomycin HCl 1.25 GM in Sodium Chloride 0.9% 250 ML 250 ML IVPB SCH ×2 (12:25→21:48)
[2019-10-29] MEDS: busPIRone HCl 10 MG TAB PO SCH ×2 (15:01→21:10)
[2019-10-30] MEDS: Cefepime 2 GM in Sodium Chloride 0.9% 100 ML IVPB SCH ×2 (00:43→13:29)
[2019-10-30] MEDS: Levothyroxine Sodium 50 MCG TAB PO SCH (05:55)
[2019-10-30] MEDS: Furosemide 20 MG/2 ML VIAL SLOW IVP SCH ×2 (05:55→15:04)
[2019-10-30] MEDS: Folic Acid 1 MG TAB PO SCH (10:08)
[2019-10-30] MEDS: PARoxetine 20 MG TAB PO SCH (10:08)
[2019-10-30] MEDS: Losartan 25 MG TAB PO SCH (10:08)
[2019-10-30] MEDS: Famotidine 20 MG TAB PO SCH ×2 (10:09→21:49)
[2019-10-30] MEDS: Ferrous Sulfate 325 MG TAB PO SCH ×2 (10:09→21:49)
[2019-10-30] MEDS: busPIRone HCl 10 MG TAB PO SCH ×3 (10:09→21:49)
[2019-10-30] MEDS: Aspirin 325 MG TAB PO SCH (10:09)
[2019-10-30] MEDS: Vancomycin HCl 1.25 GM in Sodium Chloride 0.9% 250 ML 250 ML IVPB SCH (10:10)
--- NOTE | 2019-10-30 10:25 | PDOC.HOSPP ---
- Subjective Encounter Date: 10/30/19 Encounter Time: 10:23 Subjective: Ms. Palacios was seen today in follow-up of pneumonia. She says she is feeling better. She says she is less short of breath. Her nUrse notes that she has become more sleepy over the past day or so. The patient tells me she was diagnosed with sleep apnea a few years ago. She has not had a recent sleep study , and has not used her CPAP or BiPAP machine recently, - Objective Vital Signs & Weight: Vital Signs (12 hours) Temp Pulse Resp Pulse Ox 10/30/19 07:20 96.9 F L 10/30/19 07:11 79 24 H 98 10/30/19 04:00 97.0 F L 10/29/19 23:10 97.8 F Weight Admit Weight 265 lb 3.2 oz Weight 265 lb 3.2 oz Most Recent Monitor Data Heart Rate from ECG 80 NIBP 123/91 NIBP BP-Mean 101 Respiration from ECG 22 SpO2 98 I&O: 10/29/19 10/30/19 10/31/19 06:59 06:59 06:59 Intake Total 610 480 Output Total 1200 1250 Balance -590 -770 Result Diagrams: 10/29/19 03:16 10/29/19 03:16 Additional Labs: Accuchecks 10/30/19 10/29/19 10/29/19 05:44 20:58 16:55 POC Glucose 127 H 237 H 173 H 10/29/19 10:57 POC Glucose 107 Hospitalist ROS - Medication Medications: Active Medications Generic Name Dose Route Start Last Admin Trade Name Frankyq PRN Reason Stop Dose Admin Albuterol/Ipratropium 3 ml 10/27/19 19:00 10/30/19 07:11 Duoneb NEB 3 ml [id number] JIGNESH Administration Aspirin 325 mg 10/29/19 08:00 10/30/19 10:09 Aspirin PO 325 mg QAM-WM JIGNESH Administration Buspirone HCl 10 mg 10/29/19 15:00 10/30/19 10:09 Buspar PO 10 mg TID JIGNESH Administration Famotidine 20 mg 10/27/19 21:00 10/30/19 10:09 Pepcid PO 20 mg BID JIGNESH Administration Ferrous Sulfate 325 mg 10/28/19 21:00 10/30/19 10:09 Feosol PO 325 mg BID JIGNESH Administration Folic Acid 1 mg 10/29/19 09:00 10/30/19 10:08 Folvite PO 1 mg DAILY JIGNESH Administration Furosemide 20 mg 10/28/19 06:00 10/30/19 05:55 Lasix SLOW IVP 20 mg 0600,1400 JIGNESH Administration Cefepime HCl 2 gm/ Sodium 100 mls @ 200 mls/hr 10/28/19 01:00 10/30/19 00:43 Chloride IVPB 100 mls 0100,1300 JIGNESH Administration Vancomycin HCl 1.25 gm/ Sodium 250 mls @ 166.667 mls/hr 10/29/19 09:00 10:10 Chloride IVPB 250 mls 0900,2100 JIGNESH Administration Insulin Human Lispro 0 units 10/27/19 18:44 10/29/19 05:42 Humalog SC 2 unit .MODERATE SLIDING SC PRN Administration Moderate Correctional Scale Insulin Human Lispro 0 units 10/27/19 18:44 10/29/19 21:15 Humalog SC 2 units .BEDTIME SLIDING SC PRN Administration Bedtime Correctional Scale Levothyroxine Sodium 50 mcg 10/29/19 06:00 10/30/19 05:55 Synthroid PO 50 mcg 0600 JIGNESH Administration Losartan Potassium 100 mg 10/30/19 09:00 10/30/19 10:08 Cozaar PO 100 mg DAILY JIGNESH Administration Nystatin 0 gm 10/28/19 21:00 10/29/19 21:10 Mycostatin Powder TOP 1 applic BID JIGNESH Administration Paroxetine HCl 20 mg 10/29/19 09:00 10/30/19 10:08 Paxil PO 20 mg DAILY JIGNESH Administration Sodium Chloride 10 ml 10/27/19 21:00 10/30/19 10:11 Flush - Normal Saline IVF 10 ml Q12HR JIGNESH Administration - Exam Eye: PERRL, anicteric sclera Heart: RRR, no murmur, no gallops, no rubs, normal peripheral pulses Respiratory: rales, rhonchi (+ fine rales at the bases, and some scattered rhonchi.) Gastrointestinal: soft, non-tender, non-distended, normal bowel sounds, no palpable masses, no hepatomegaly Extremities: 1+ LE edema (+ chronic venous stasis changes) Hosp A/P (1) Acute and chronic respiratory failure with hypoxia Code(s): J96.21 - ACUTE AND CHRONIC RESPIRATORY FAILURE WITH HYPOXIA Status: Acute (2) HCAP (healthcare-associated pneumonia) Code(s): J18.9 - PNEUMONIA, UNSPECIFIED ORGANISM Status: Acute (3) Hypertension Code(s): I10 - ESSENTIAL (PRIMARY) HYPERTENSION Status: Chronic (4) Diabetes mellitus Code(s): E11.9 - TYPE 2 DIABETES MELLITUS WITHOUT COMPLICATIONS Status: Chronic (5) Morbid obesity Code(s): E66.01 - MORBID (SEVERE) OBESITY DUE TO EXCESS CALORIES Status: Chronic (6) Physical deconditioning Code(s): R53.81 - OTHER MALAISE Status: Chronic (7) NADYA (obstructive sleep apnea) Code(s): G47.33 - OBSTRUCTIVE SLEEP APNEA (ADULT) (PEDIATRIC) Status: Acute (8) Hypothyroidism Code(s): E03.9 - HYPOTHYROIDISM, UNSPECIFIED Status: Chronic - Plan * Acute on chronic respiratory failure due to pneumonia- continue Cefepime and Vancomycin * She has a poor inspiratory effort- due to body habitus and deconditioning- will add Incentive Spirometry * NADYA- will place on empiric CPAP at night * HTN- blood pressure is a bit elevated - will observe, and continue prn medication for now- re-start Losartan tomorrow * Hypothyroidism- she is clinically euthyroid * DM- Her blood glucose is stable- continue to titrate Lantus as needed and continue SSI
[2019-10-30] MEDS: Nystatin Powder 15 GM BOT TOP SCH ×2 (10:42→21:49)
[2019-10-30 20:39] LABS: Vancomycin, Trough 30.5 ug/mL
[2019-10-31] MEDS: Cefepime 2 GM in Sodium Chloride 0.9% 100 ML IVPB SCH (01:32)
[2019-10-31] MEDS: Levothyroxine Sodium 50 MCG TAB PO SCH (05:07)
[2019-10-31] MEDS: Furosemide 20 MG/2 ML VIAL SLOW IVP SCH (05:07)
--- NOTE | 2019-10-31 08:42 | PDOC.HOSPP ---
- Subjective Encounter Date: 10/31/19 Encounter Time: 08:41 Subjective: Ms. Palacios was seen today in follow-up of pneumonia and respiratory failure. She says she feels much better. She wants to go home. No new complaints. - Objective Vital Signs & Weight: Vital Signs (12 hours) Temp Pulse Resp Pulse Ox 10/31/19 07:22 97.4 F L 10/31/19 07:04 77 20 100 10/31/19 03:53 97.6 F 10/31/19 00:10 18 99 10/30/19 23:45 97.7 F Weight Admit Weight 265 lb 3.2 oz Weight 265 lb 3.2 oz Most Recent Monitor Data Heart Rate from ECG 74 NIBP 121/48 NIBP BP-Mean 72 Respiration from ECG 20 SpO2 97 I&O: 10/30/19 10/31/19 11/01/19 06:59 06:59 06:59 Intake Total 480 910 Output Total 1250 1500 Balance -770 -590 Result Diagrams: 10/29/19 03:16 10/29/19 03:16 Additional Labs: Accuchecks 10/31/19 10/30/19 10/30/19 06:23 21:12 16:34 POC Glucose 136 H 134 H 129 H 10/30/19 10:40 POC Glucose 122 H Hospitalist ROS - Medication Medications: Active Medications Generic Name Dose Route Start Last Admin Trade Name Freq PRN Reason Stop Dose Admin Albuterol/Ipratropium 3 ml 10/27/19 19:00 10/31/19 07:04 Duoneb NEB 3 ml [id number] JIGNESH Administration Aspirin 325 mg 10/29/19 08:00 10/30/19 10:09 Aspirin PO 325 mg QAM- JIGNESH Administration Buspirone HCl 10 mg 10/29/19 15:00 10/30/19 21:49 Buspar PO 10 mg TID JIGNESH Administration Famotidine 20 mg 10/27/19 21:00 10/30/19 21:49 Pepcid PO 20 mg BID JIGNESH Administration Ferrous Sulfate 325 mg 10/28/19 21:00 10/30/19 21:49 Feosol PO 325 mg BID IJGNESH Administration Folic Acid 1 mg 10/29/19 09:00 10/30/19 10:08 Folvite PO 1 mg DAILY JIGNESH Administration Furosemide 20 mg 10/28/19 06:00 10/31/19 05:07 Lasix SLOW IVP 20 mg 0600,1400 JIGNESH Administration Cefepime HCl 2 gm/ Sodium 100 mls @ 200 mls/hr 10/28/19 01:00 10/31/19 01:32 Chloride IVPB 100 mls 0100,1300 JIGNESH Administration Insulin Human Lispro 0 units 10/27/19 18:44 10/29/19 05:42 Humalog SC 2 unit .MODERATE SLIDING SC PRN Administration Moderate Correctional Scale Insulin Human Lispro 0 units 10/27/19 18:44 10/29/19 21:15 Humalog SC 2 units .BEDTIME SLIDING SC PRN Administration Bedtime Correctional Scale Levothyroxine Sodium 50 mcg 10/29/19 06:00 10/31/19 05:07 Synthroid PO 50 mcg 0600 JIGNESH Administration Losartan Potassium 100 mg 10/30/19 09:00 10/30/19 10:08 Cozaar PO 100 mg DAILY JIGNESH Administration Nystatin 0 gm 10/28/19 21:00 10/30/19 21:49 Mycostatin Powder TOP 1 applic BID JIGNESH Administration Paroxetine HCl 20 mg 10/29/19 09:00 10/30/19 10:08 Paxil PO 20 mg DAILY JIGNESH Administration Sodium Chloride 10 ml 10/27/19 21:00 10/30/19 21:50 Flush - Normal Saline IVF 10 ml Q12HR JIGNESH Administration - Exam Eye: PERRL Heart: RRR, no murmur, no gallops, no rubs, normal peripheral pulses Respiratory: CTAB, no wheezes, no rales, no ronchi, normal chest expansion, no tachypnea Gastrointestinal: soft, non-tender, non-distended, normal bowel sounds, no palpable masses, no hepatomegaly Extremities: 1+ LE edema (chronic venous stasis changes) Hosp A/P (1) Acute and chronic respiratory failure with hypoxia Code(s): J96.21 - ACUTE AND CHRONIC RESPIRATORY FAILURE WITH HYPOXIA Status: Acute (2) HCAP (healthcare-associated pneumonia) Code(s): J18.9 - PNEUMONIA, UNSPECIFIED ORGANISM Status: Acute (3) Hypertension Code(s): I10 - ESSENTIAL (PRIMARY) HYPERTENSION Status: Chronic (4) Diabetes mellitus Code(s): E11.9 - TYPE 2 DIABETES MELLITUS WITHOUT COMPLICATIONS Status: Chronic (5) Morbid obesity Code(s): E66.01 - MORBID (SEVERE) OBESITY DUE TO EXCESS CALORIES Status: Chronic (6) Physical deconditioning Code(s): R53.81 - OTHER MALAISE Status: Chronic (7) NADYA (obstructive sleep apnea) Code(s): G47.33 - OBSTRUCTIVE SLEEP APNEA (ADULT) (PEDIATRIC) Status: Acute (8) Hypothyroidism Code(s): E03.9 - HYPOTHYROIDISM, UNSPECIFIED Status: Chronic - Plan * Acute on chronic respiratory failure due to pneumonia- her lungs sound clear, and she is much more alert * She can be transitioned to an oral antibiotic- Augmentin * Stable for transition back to the Nursing facility * She is however still a high risk for re-admission due co-morbid conditions
[2019-10-31] MEDS: busPIRone HCl 10 MG TAB PO SCH (09:49)
[2019-10-31] MEDS: Aspirin 325 MG TAB PO SCH (09:49)
[2019-10-31] MEDS: PARoxetine 20 MG TAB PO SCH (09:50)
[2019-10-31] MEDS: Famotidine 20 MG TAB PO SCH (09:50)
[2019-10-31] MEDS: Ferrous Sulfate 325 MG TAB PO SCH (09:50)
[2019-10-31] MEDS: Losartan 25 MG TAB PO SCH (09:50)
[2019-10-31] MEDS: Folic Acid 1 MG TAB PO SCH (09:50)
[2019-10-31] MEDS: Nystatin Powder 15 GM BOT TOP SCH (09:50)
[2019-10-31 11:31] VITALS: TEMP 97.5
--- NOTE | 2019-10-31 14:37 | DIS ---
DATE OF ADMISSION: 10/27/2019 DATE OF DISCHARGE: 10/31/2019 DISCHARGE DISPOSITION: Back to the [facility]. DISCHARGE DIAGNOSES: 1. Acute respiratory failure with hypoxemia. 2. Probable bacterial pneumonia. 3. Diabetes mellitus type 2. 4. Morbid obesity. 5. Hypertension. 6. Chronic diastolic heart failure. 7. Obstructive sleep apnea. Currently not using CPAP. 8. Bed-bound status. 9. 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 DISCHARGE MEDICATIONS: 1. Losartan 100 mg daily. 2. Lotrimin 1% applied twice daily. 3. Aspirin 325 mg daily. 4. Augmentin 875 mg twice a day. 5. Florastor 250 mg daily. 6. Paroxetine 20 mg daily. 7. Zofran 4 mg q.6. 8. Nystatin topical twice daily. 9. Mupirocin 2% ointment twice a day. 10. Multivitamins once daily. 11. Metolazone 5 mg daily only as needed for volume overload. 12. Levothyroxine 50 mcg p.o. daily. 13. DuoNeb q.i.d. as needed. 14. Novolin R 4 units subcu with meals. 15. NPH insulin 32 units in the morning, 22 in the evening. 16. Lasix 40 mg daily. 17. Iron sulfate 325 mg twice a day. 18. BuSpar 10 mg t.i.d. 19. Acetaminophen 325 mg as needed. CODE STATUS: Full code. ALLERGIES: NO KNOWN DRUG ALLERGIES. HOSPITAL COURSE: Ms. Palacios is a very pleasant 78-year-old female who was admitted to the hospital after she developed shortness of breath and cough in the nursing facility. She was evaluated in the ER and found to have bilateral lower lobe infiltrates. She was started on broad-spectrum IV antibiotics due to recent hospital exposure and treated with intermittent BiPAP as needed and she began to improve over the course of the next couple of days. It was noted that she was somewhat drowsy off and on and it was felt this was related to the obstructive sleep apnea not being adequately treated. She admits she has been diagnosed with sleep apnea, but her last sleep study has been more than 2 years ago and she admits that she has not been using CPAP in the nursing facility. She was strongly encouraged to follow up and get a sleep study done and then to resume the CPAP and BiPAP. She was also encouraged to do incentive spirometry while she is in a nursing facility as she is at high risk for readmission due to her body habitus and bed-bound status and general dysmotility. Job ID: [id number]
[2019-10-31] MEDS ORDERED: Vancomycin HCl 1.25 GM in Sodium Chloride 0.9% 250 ML 250 ML IVPB SCH (21:00)
--- NOTE | 2019-11-01 12:39 | PQF ---
LENI NAVARRO TONI MD [id number] [facility]- [id number] CLINICAL DOCUMENTATION CLARIFICATION FORM: POST DISCHARGE Addendum to original discharge summary date: ____ Late entry note date: __ DATE: 11/01/2019 ATTN: SHILOH JUDD MD Please exercise your independent, professional judgement in responding to the clarification form. Clinical indicators are provided on the bottom of this form for your review Please check appropriate box(s) to clarify if the following diagnosis has been ruled in or ruled out: Sepsis [ X ] Ruled in diagnosis X[ ] Continue to treat [ ] Resolved [ ] Ruled out diagnosis [ ] Cannot rule out diagnosis [ ] Other diagnosis [ ] Unable to determine For continuity of documentation, please document condition throughout progress notes and discharge summary. Thank You. CLINICAL INDICATORS - SIGNS / SYMPTOMS / LABS - Sepsis secondary to bilateral pneumonia- H&P, 10/26, Ivanna Perez DO - Temp: 97.5F, Pulse: 106, RR:27-H&P, 10/26Chris Chales DO - WBC: 11.2- H&P, 10/26, Ivanna Perez DO - probable bacterial pneumonia- DS, 10/30, Ivanna Perez DO RISK FACTORS - Acute on chronic hypoxia resp failure- Hospital PN, 10/27,Ivanna Perez DO TREATMENTS - Maxipime.IV- 10/26 - Vancomycin.IV- 10/26 (This form is maintained as a part of the permanent medical record) 2014 [employer]. All Rights Reserved [email or web address]
== END 2019-10-31 13:50 | DRG 871 ==
LOC: ERS 12:07 → IMCU/EMU 18:40
PROVIDERS: ADMIT Family Medicine; ATTEND Family Medicine
DX: A41.9 Sepsis, unspecified organism (principal); J96.21 Acute and chronic respiratory failure with hypoxia; J15.6 Pneumonia due to other Gram-negative bacteria; I50.32 Chronic diastolic (congestive) heart failure; Z68.42 Body mass index [BMI] 45.0-49.9, adult; E11.9 Type 2 diabetes mellitus without complications; I11.0 Hypertensive heart disease with heart failure; G47.33 Obstructive sleep apnea (adult) (pediatric); Z95.0 Presence of cardiac pacemaker; Z74.01 Bed confinement status; E66.01 Morbid (severe) obesity due to excess calories; E03.9 Hypothyroidism, unspecified; Z90.49 Acquired absence of other specified parts of digestive tract; E87.5 Hyperkalemia; I87.2 Venous insufficiency (chronic) (peripheral); Z99.81 Dependence on supplemental oxygen
CPT/HCPCS: 36415; 36416; 71045; 80048; 80053; 80202; 83605; 83735; 83880; 84484; 85007; 85025; 85027; 87040; 87804; 93005; 94660; 94760; 96361; 96365; A4353; J0692; J1940; J3370; J3490; J7050; J7620

== ENCOUNTER 2019-11-01 07:54 | Emergency (ER) | payer MEDICARE, OTHER ==
[2019-11-01] MEDS ORDERED: Sodium Bicarb 50 MEQ/50 ML Abboject 8.4% SYRINGE ONE (08:00)
[2019-11-01] MEDS ORDERED: EPINEPHrine 1 MG/10 ML Abboject SYRINGE ONE (08:00)
== END 2019-11-01 08:05 | disposition expired ==
LOC: ERS 07:54
DX: I46.9 Cardiac arrest, cause unspecified (principal); E11.9 Type 2 diabetes mellitus without complications; E78.5 Hyperlipidemia, unspecified; E78.00 Pure hypercholesterolemia, unspecified; I10 Essential (primary) hypertension; F41.9 Anxiety disorder, unspecified
CPT/HCPCS: 92950; 96374; 96375; 99285; U0001; J0171